=== PATIENT | male | born 1960 | race Caucasian/White ===

== ENCOUNTER 2021-10-23 10:57 | Inpatient (IN) | payer MEDICAID, SELFPAY ==
[2021-10-23] VITALS (24 sets, daily range): BP systolic 107–139; BP diastolic 60–101; PULSE 80–101; RESP 16–36; TEMP 36.6–37.1; O2SAT 87–95; BMI 34.9; BMI 36.2
--- NOTE | 2021-10-23 11:03 | XRR_ITS ---
PROCEDURE INFORMATION: Exam: XR Chest Exam date and time: 10/23/2021 11:40 AM Age: 60 years old Clinical indication: Dyspnea TECHNIQUE: Imaging protocol: XR of the chest. Views: 1 view. COMPARISON: No relevant prior studies available. FINDINGS: Lungs: Unremarkable. No consolidation. Pleural spaces: Unremarkable. No pleural effusion. No pneumothorax. Heart/Mediastinum: Unremarkable. No cardiomegaly. Bones/joints: Unremarkable. XR/XR chest 1V portable [id number] IMPRESSION: No acute findings.
--- NOTE | 2021-10-23 11:22 | ECG_ITS ---
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 Measurements Intervals [place] Rate: 90 P: 50 AR: 157 QRS: 48 QRSD: 109 T: -10 QT: 370 QTc: 453 Interpretive Statements SINUS RHYTHM No previous ECG available for comparison Electronically Signed On 10-23-2021 17:11:26 CDT by Easton Cheng M.D. [email or web address] careTacatì[facility].[employer]/store/Ov/[id number]
[2021-10-23 11:45] LABS: Basophils % 0.2 %; Eosinophils # 0.3 10^3/uL (0.0-0.8); Eosinophils % 3.1 %; Hemoglobin 13.5 g/dL (11.7-16.6); Lymphocytes # 2.1 10^3/uL (0.8-4.8); Lymphocytes % 23.3 %; Mean Corpuscular Hemoglobin 27.9 pg (28.0-34.0); Mean Platelet Volume 10.3 fL (7.4-10.4); Monocytes # 1.1 10^3/uL (0.2-0.9); Monocytes % 12.1 %; Neutrophils # 5.29 10^3/uL (1.8-7.7); Neutrophils % 60.3 %; Nucleated Red Blood Cells % 0 %; Platelet Count 431 10^3/cmm (130-400); Red Blood Count 4.84 10^6/uL (4.1-5.3); Red Cell Distribution Width 14.9 % (12.1-15.1); White Blood Count 8.8 10^3/uL (4.0-10.0)
[2021-10-23 11:46] LABS: Anion Gap 12.4 (5-19); Blood Urea Nitrogen 8 mg/dL (8-23); Calcium 9.3 mg/dL (8.5-10.5); Carbon Dioxide 34 mmol/L (22-29); Chloride 98 mmol/L (98-107); Glomerular Filtration Rate 114.6 mL/min (90-130); Glucose 133 mg/dL (65-115); Osmolality Calculated 292 mOsm/kg (285-295); Potassium 3.4 mmol/L (3.5-5.1); Sodium 141 mmol/L (136-145)
--- NOTE | 2021-10-23 11:47 | W.ED.SOB ---
HPI - SOB/Dyspnea General: Chief Complaint: Shortness of Breath/Dyspnea Stated Complaint: LOW O2 SATS Time Seen by Provider: 10/23/21 11:21 Source: patient Mode of arrival: EMS History of Present Illness: HPI Narrative: 60 yo male presents emergency room complaining of shortness of breath cough. He recently was hospitalized at [facility] for pneumonia he was there for he said some between 7 and 9 days he ended up leaving early he had wanted to go they wanted him to stay for a time. Evidently they did discharge him he states he is not discharged on any oxygen. Patient was seen in follow-up yesterday at [facility] and they thought he was fluid overloaded he was coughing and short of breath he was advised to go to the hospital but did not. He presents to the emergency room today extremely dyspneic does have some swelling in his legs initially evaluated and given Lasix 60 mg or try to get old records but still have not been able to secure them. He tells me they screened him for blood clot in his lungs and he was told it was negative he was also receiving shots in his abdomen to prevent blood clots. MD elicited complaint: shortness of breath and cough Pertinent past history: COPD and congestive heart failure Onset (ago): week(s) Context: recent illness Timing: constant Severity: severe Exacerbating factors: exertion and coughing Relieving factors: oxygen and rest Known history of: COPD and congestive heart failure Associated symptoms: Reports chest congestion, cough and fever(s); Deny abdominal pain, chest pain, diaphoresis, dizziness, extremity pain, hemoptysis, lightheadedness, myalgias, nausea, orthopnea, palpitations, paresthesias, polydipsia, polyuria, rash, sense of impending doom, syncope or vomiting Treatment prior to arrival: none Review of Systems Const: Reports: fever(s), chills and body aches; Denies: diaphoresis ENMT: Denies: throat pain, ear or mastoid pain, nasal discharge or nasal congestion Card: Reports: edema and swelling of feet/ankles; Denies: chest pain, palpitations, lightheadedness, syncope or orthopnea Resp: Reports: dyspnea, productive cough, wheezing and chest congestion; Denies: non-productive cough or hemoptysis GI: Denies: abdominal pain, nausea or vomiting : Denies: flank pain, difficulty urinating, dysuria, urinary frequency or urinary urgency Musc: Denies: extremity pain Skin/Breast: Denies: rash or pruritus Neuro: Denies: dizziness Endo: Denies: polyuria or polydipsia PFSH ED PFSH: Medical History (Updated 10/23/21 @ 15:44 by Chad Kong DO) Congestive heart failure COPD (chronic obstructive pulmonary disease) Physical Exam Const: GENERAL APPEARANCE: cooperative ORIENTATION/CONSCIOUSNESS: Yes awake, Yes oriented to person, Yes oriented to place and Yes oriented to time HENMT: COMMON NORMALS: normocephalic, atraumatic and hearing grossly normal bilaterally HEAD & SCALP: normocephalic and atraumatic Resp: AUSCULTATION: rales, rhonchi and wheezes Cardio: COMMON NORMALS: regular rate, regular rhythm and No murmurs present (Cardio) RATE: regular rate RHYTHM: regular rhythm GI: COMMON NORMALS: Soft to palpation and No hepatosplenomegaly present AUSCULTATION: Yes normoactive bowel sounds PALPATION: Yes Soft to palpation, No Tenderness to palpation present (GI), No Guarding due to palpation present (GI) and Yes No hepatosplenomegaly present Extremity: COMMON NORMALS: normal to inspection, capillary refill normal, no clubbing, cyanosis or edema, no calf tenderness and no pedal edema Neuro: SENSORIUM/ORIENTATION: Yes oriented to person, Yes oriented to place and Yes oriented to time Skin: COMMON NORMALS: no rashes or lesions noted GENERAL SKIN EXAM: no rashes or lesions noted Course Vital Signs: Vital signs: Vital Signs Temperature 98.5 F 10/23/21 11:11 Pulse Rate 81 10/23/21 15:29 Respiratory Rate 32 H 10/23/21 15:29 Blood Pressure 139/77 10/23/21 15:29 Pulse Oximetry 90 10/23/21 15:29 MDM - SOB/Dyspnea Medical Decision Making Patient is starting productive cough suspect exacerbation of COPD and pneumonia as well as a mild fluid overload although the fluid overload seems to be minimal. We will restart him on Vanco Zosyn and Levaquin steroids and nebulizers oxygen support discussed with hospitalist orders written Medical Records I reviewed the patient's medical records. Lab Data I reviewed the patient's lab results. : 10/23/21 09:55 10/23/21 09:55 Labs/Radiology: Radiology Impressions Chest X-Ray 10/23/21 11:03 IMPRESSION: No acute findings. Laboratory Results WBC 8.8 10^3/uL (4.0-10.0) 10/23/21 09:55 RBC 4.84 10^6/uL (4.1-5.3) 10/23/21 09:55 Hgb 13.5 g/dL (11.7-16.6) 10/23/21 09:55 Hct 45.0 % (42.0-52.0) 10/23/21 09:55 MCV 93.0 fl (80-94) 10/23/21 09:55 MCH 27.9 pg (28.0-34.0) L 10/23/21 09:55 MCHC 30.0 g/dL (30.0-36.0) 10/23/21 09:55 RDW 14.9 % (12.1-15.1) 10/23/21 09:55 Plt Count 431 10^3/cmm (130-400) H 10/23/21 09:55 MPV 10.3 fL (7.4-10.4) 10/23/21 09:55 Neut % (Auto) 60.3 % 10/23/21 09:55 Lymph % (Auto) 23.3 % 10/23/21 09:55 Craven % (Auto) 12.1 % 10/23/21 09:55 Eos % (Auto) 3.1 % 10/23/21 09:55 Baso % (Auto) 0.2 % 10/23/21 09:55 Neut # (Auto) 5.29 10^3/uL (1.8-7.7) 10/23/21 09:55 Lymph # (Auto) 2.1 10^3/uL (0.8-4.8) 10/23/21 09:55 Craven # (Auto) 1.1 10^3/uL (0.2-0.9) H 10/23/21 09:55 Eos # (Auto) 0.3 10^3/uL (0.0-0.8) 10/23/21 09:55 Baso # (Auto) 0.0 10^3/uL (0.0-0.1) 10/23/21 09:55 Nucleated RBC % (auto) 0 % 05/17/22 09:55 Nucleated RBCs # 0.0 /100WBC 10/23/21 09:55 Specimen Type Arterial 10/23/21 11:37 Sample Site Radial, left 10/23/21 11:37 ABG pH 7.40 (7.35-7.45) 10/23/21 11:37 ABG pCO2 59.9 mmHg (35-45) H 10/23/21 11:37 ABG pO2 59.4 mmHg (80.0-100.0) L 10/23/21 11:37 ABG HCO3 36.9 mmol/L (22-26) H 10/23/21 11:37 ABG O2 Saturation 89.9 10/23/21 11:37 ABG Base Excess 9.8 mmol/L (-2.0-2.0) H 10/23/21 11:37 Ray Test Pos 10/23/21 11:37 A-a O2 Gradient 8.9 mmHg (5-10) 10/23/21 11:37 Hematocrit 40.9 % (42-52) L 10/23/21 11:37 Hgb O2 Saturation 87.3 % (95-100) L 10/23/21 11:37 Carboxyhemoglobin 2.1 %THgb (0.4-20.1) 10/23/21 11:37 Methemoglobin 0.8 % (0.4-1.5) 10/23/21 11:37 Total Hemoglobin 13.3 g/dL (14-18) L 10/23/21 11:37 Sodium 142.0 mmol/L (131-143) 10/23/21 11:37 Potassium 3.5 mmol/L (3.5-5.0) 10/23/21 11:37 Glucose 147.0 mg/dL (70-115) H 10/23/21 11:37 Ionized Calcium 1.2 mmol/L (1.1-1.4) 10/23/21 11:37 O2 Delivery Device Nc 10/23/21 11:37 O2 Liters/Min 2.0 % 10/23/21 11:37 FiO2 28.0 % 10/23/21 11:37 Chief Human Resources Officer ID Cak 10/23/21 11:37 Sodium 141 mmol/L (136-145) 10/23/21 09:55 Potassium 3.4 mmol/L (3.5-5.1) L 10/23/21 09:55 Chloride 98 mmol/L (98-107) 10/23/21 09:55 Carbon Dioxide 34 mmol/L (22-29) H 10/23/21 09:55 Anion Gap 12.4 (5-19) 10/23/21 09:55 BUN 8 mg/dL (8-23) 10/23/21 09:55 Creatinine 0.7 mg/dL (0.7-1.2) 10/23/21 09:55 GFR Calculation 114.6 mL/min (90-130) 10/23/21 09:55 Glucose 133 mg/dL (65-115) H 10/23/21 09:55 Calculated Osmolality 292 mOsm/kg (285-295) 10/23/21 09:55 Calcium 9.3 mg/dL (8.5-10.5) 10/23/21 09:55 Troponin T Baseline 12 ng/L (0-15) 10/23/21 11:45 Troponin T 120 Minute 11.29 ng/L (0-15) 10/23/21 14:00 Delta Troponin T -0.71 ABS# (0-10) L 10/23/21 14:00 NT-Pro-B Natriuret Pep 134 pg/mL (0-125) H 10/23/21 14:35 Discharge Plan Discharge Patient Disposition: Admitted As Inpatient Clinical Impression: Acute exacerbation of chronic obstructive pulmonary disease, Congestive heart failure, Pneumonia Condition: Stable Prescriptions: No Action losartan 50 mg tablet 50 mg PO DAILY 0RF furosemide 40 mg tablet 40 mg PO BID 0RF atorvastatin 40 mg tablet 40 mg PO BEDTIME 0RF silver sulfadiazine 1 % cream 1 applic TOPICAL BID PRN (Reason: unknown) 0RF Zyrtec 10 mg Tablet 10 mg PO DAILY 0RF azithromycin 250 mg tablet See Rx Instructions .ROUTE .COMPLEX 0RF Rx Instructions: as directed on package aspirin 325 mg Tablet 325 mg PO QAM 0RF ibuprofen 800 mg Tablet 800 mg PO Q8H PRN (Reason: Pain) 0RF famotidine 40 mg tablet 40 mg PO BID 0RF Tylenol Ex Str Rapid Release 500 mg Tablet 500 mg PO Q6H PRN (Reason: Pain) 0RF glimepiride 2 mg tablet 2 mg PO BID 0RF isosorbide mononitrate 60 mg tablet extended release 24 hr 60 mg PO BID 0RF citalopram 20 mg tablet 20 mg PO BEDTIME 0RF trazodone 100 mg tablet 100 mg PO BEDTIME 0RF metformin 1,000 mg tablet 1,000 mg PO BID 0RF metoprolol tartrate 50 mg tablet 50 mg PO Q12H 0RF Nitrostat 0.4 mg Tablet, Sublingual 0.4 mg SUBLINGUAL Q5M PRN (Reason: Chest Pain) 0RF Rx Instructions: do not exceed 3 doses per episode ProAir HFA 90 mcg/actuation HFA aerosol inhaler 2 puff INHALATION Q4H PRN (Reason: Shortness Of Breath) 0RF fluticasone propionate 50 mcg/actuation spray,suspension 2 spray INTRANASAL DAILY PRN (Reason: Allergy Symptoms) 0RF amoxicillin-pot clavulanate 875-125 mg tablet 1 tab PO Q12H 0RF Symbicort 160-4.5 mcg/actuation HFA aerosol inhaler 2 puff INHALATION BID 0RF Centrum Silver Men 300-600-300 mcg Tablet 1 tab PO DAILY 0RF Jardiance 10 mg tablet 10 mg PO QAM 0RF albuterol sulfate 2.5 mg /3 mL (0.083 %) Solution For Nebulization 2.5 mg INHALATION Q6H PRN (Reason: Shortness Of Breath) 0RF Chest Congestion Relief 400 mg Tablet 400 mg PO Q6H PRN (Reason: Congestion) 0RF Referrals: Farnaz Cano FNP [Primary Care Provider] - Patient Instructions: Opioid Safety Coding Level of Care Code ED Copper Flotation Operator for Carolina Grace
[2021-10-23 11:49] LABS: ABG PCO2 59.9 mmHg (35-45); Alveolar-Arterial Oxygen Gradi 8.9 mmHg (5-10); Arterial Blood Gas Hematocrit 40.9 % (42-52); Base Excess ABG 9.8 mmol/L (-2.0-2.0); Blood Gas Allen Test Pos; Blood Gas Operator Identificat CAK; Blood Gas Sample Site Radial, left; Blood Gas Sample Type Arterial; Carboxyhemoglobin 2.1 %THgb (0.4-20.1); HCO3 ABG 36.9 mmol/L (22-26); HGB O2 Sat 87.3 % (95-100); Ionized Calcium Level - ABG 1.2 mmol/L (1.1-1.4); Methemoglobin 0.8 % (0.4-1.5); Oxygen Device NC; Oxygen Saturation ABG 89.9; PO2 ABG 59.4 mmHg (80.0-100.0); Potassium Level - ABG 3.5 mmol/L (3.5-5.0); Total Hemoglobin 13.3 g/dL (14-18)
[2021-10-23] MEDS: FUROsemide 10 mg/mL SDV 10mL 60 MG IVP (12:35)
--- NOTE | 2021-10-23 13:22 | ECG_ITS ---
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 Measurements Intervals [place] Rate: 89 P: 47 FL: 153 QRS: 42 QRSD: 110 T: -12 QT: 364 QTc: 443 Interpretive Statements SINUS RHYTHM POSSIBLE INFERIOR MYOCARDIAL INFARCTION , PROBABLY OLD [30 ms Q WAVE IN II/aVF] Compared to ECG 10/23/2021 11:17:00 Myocardial infarct finding now present Electronically Signed On 10-23-2021 17:15:24 CDT by Easton Cheng M.D. [email or web address].Mobixell Networksocean springs hospitalFinoverablanchard valley health system [facility].[employer] Quotient/store/OM/[id number]
--- NOTE | 2021-10-23 14:07 | PC.NURSE ---
lab coming to get blood sample.
[2021-10-23 14:34] LABS: Troponin(5th) Baseline 12 ng/L (0-15)
--- NOTE | 2021-10-23 14:48 | PC.NURSE ---
Patient's family Dorita Poli per patient is allowed to get updates, phone number that she can be reached at is [phone].
--- NOTE | 2021-10-23 14:52 | PC.NURSE ---
Called lab regarding two hour trop. they stated that is should be run soon.
[2021-10-23 15:10] LABS: Troponin 5 2HR 11.29 ng/L (0-15)
[2021-10-23 15:13] LABS: Troponin 5 2HR Delta -0.71 ABS# (0-10)
--- NOTE | 2021-10-23 15:13 | CTR_ITS ---
PROCEDURE INFORMATION: Exam: CTA Chest With Contrast Exam date and time: 10/23/2021 3:56 PM Age: 60 years old Clinical indication: Shortness of breath; Additional info: Hypoxia TECHNIQUE: Imaging protocol: Computed tomographic angiography of the chest with contrast. 3D rendering (Not supervised by radiologist): MIP and/or 3D reconstructed images were created by the technologist. Radiation optimization: All CT scans at this facility use at least one of these dose optimization techniques: automated exposure control; mA and/or kV adjustment per patient size (includes targeted exams where dose is matched to clinical indication); or iterative reconstruction. Contrast material: OMNI 300; Contrast volume: 79 ml; Contrast route: INTRAVENOUS (IV); COMPARISON: CR XR chest 1V portable [id number] 10/23/2021 11:40 AM RADIATION DOSE METRICS: Total DLP (mGy-cm): 628 FINDINGS: Pulmonary arteries: Minimal dilatation of main pulmonary artery at 3.2 cm. There is no pulmonary embolism in the central-proximal segmental branches. Assessment of the peripheral subsegmental small branches is limited. Aorta: Minimal ascending aortic prominence at 4 cm. Descending aorta measures 2.5 cm. No dissection. Lungs: Small ill-defined nodular densities which demonstrate peribronchial distribution in the right perihilar region of right upper lobe and right lower lobe with the largest density measuring 14 mm. A platelike patchy opacity is also noted in the periphery of posterior right upper lobe along the fissure measuring 2 cm which may represent atelectasis versus developing pneumonia. There is minimal central peribronchial thickening. No obvious bronchiectasis. No large round ground-glass opacity on either side. Scattered areas of linear scarring-atelectasis in both lung bases. Pleural spaces: Unremarkable. No pneumothorax. No pleural effusion. Heart: Normal heart size with coronary calcification. Lymph nodes: Nonenlarged mediastinal hilar calcified lymph nodes are noted compatible with chronic granulomatous disease. Bones/joints: No acute fracture. Soft tissues: Unremarkable. CT/CT angio chest PE protcl [id number] IMPRESSION: 1. No acute PE. 2. Small ill-defined nodular densities in the right perihilar region as described. Findings are nonspecific but most likely represent infectious inflammatory pneumonitis/bronchiolitis. Neoplastic process is less likely but not totally excluded. A patchy small consolidation/atelectasis is also noted. No large round ground-glass opacity. Interval CT follow-up may be considered in 4-6 weeks. Imaging features are atypical or uncommonly reported for COVID-19 pneumonia. Alternative diagnoses should be considered. (Reference: Bennie) 3. Minimal prominence of ascending aorta and main pulmonary artery. 4. Coronary calcification and other nonacute findings as above. REFERENCES: Bennie Cardenas et al., Radiological Society of [place] Expert Consensus Statement on Reporting Chest CT Findings Related to COVID-19. Endorsed by the Society of Thoracic Radiology, the [place] [employer], and RSNA. Published September 01, 2019.
[2021-10-23 15:19] LABS: NT Pro B Type Natriuretic Pept 134 pg/mL (0-125)
--- NOTE | 2021-10-23 15:30 | P.HP_ITS ---
Providers/Chief Complaint Primary Care Provider: GIOVANNY Olivia Chief Complaint: LOW O2 SATS History of Present Illness Gerard Bay is a 60 year old male with past medical history of COPD, smoker, diabetes mellitus, cad presented to the hospital today for shortness of breath requiring 3 L of oxygen saturating 90 to 92%. He also has a productive cough. He was recently at [facility] from where he possibly left AGAINST MEDICAL ADVICE. Unsure what he was admitted for. We are in the process of obtaining records from that hospital. He states that he was at the hospital and was being treated for pneumonia. Patient is a poor historian. He was not able to give me much more information. When asked him if he has obstructive sleep apnea he said he will probably do. He does not use any oxygen at home and here he is requiring 3 L nasal cannula. Patient seems to be a mouth breather is not doing well with nasal cannula. I will switch him to oxygen mask at this time. I have called respiratory. He does not have any conversational dyspnea at this time. He is just continuously hypoxic on room air. Denies any chest pain, nausea, vomiting, diarrhea, swelling in his legs. ER course: 117/60, respiratory rate 30, pulse 90, temperature 98.5, pulse ox 93% on 3 L. He was given steroids nebulizer Vanco and Levaquin. PCO2 60, PO2 50 on gas. EKG shows old inferior myocardial infarction and sinus rhythm now. Chest x-ray shows no acute findings. CTA has been ordered to rule out PE. WBC count normal, potassium 3.4, CO2 34 delta troponin negative. proBNP 134. Medications/Allergies Home Medications Medication Instructions Recorded Confirmed Last Taken Type acetaminophen 500 mg tablet 500 mg PO Q6H PRN 10/23/21 10/23/21 Unknown History albuterol sulfate 2.5 mg INHALATION Q6H PRN 10/23/21 10/23/21 Unknown History albuterol sulfate 90 mcg/actuation 2 puff INHALATION Q4H PRN 10/23/21 10/23/21 Unknown History aerosol inhaler (ProAir HFA) amoxicillin 875 mg-potassium 1 tab PO Q12H 10/23/21 10/23/21 10/22/21 History clavulanate 125 mg tablet aspirin 325 mg tablet 325 mg PO QAM 10/23/21 10/23/21 10/22/21 History atorvastatin 40 mg tablet 40 mg PO BEDTIME 10/23/21 10/23/21 10/22/21 History azithromycin 250 mg tablet See Rx Instructions .ROUTE .COMPLEX 10/23/21 10/23/21 10/22/21 History 2 tabs budesonide-formoterol HFA 160 2 puff INHALATION BID 10/23/21 10/23/21 Unknown History mcg-4.5 mcg/actuation aerosol inhaler (Symbicort) cetirizine 10 mg tablet (Zyrtec) 10 mg PO DAILY 10/23/21 10/23/21 Unknown History citalopram 20 mg tablet 20 mg PO BEDTIME 10/23/21 10/23/21 10/22/21 History empagliflozin 10 mg tablet 10 mg PO QAM 10/23/21 10/23/21 10/22/21 History (Jardiance) famotidine 40 mg tablet 40 mg PO BID 10/23/21 10/23/21 10/22/21 History fluticasone propionate 50 2 spray INTRANASAL DAILY PRN 10/23/21 10/23/21 10/22/21 History mcg/actuation nasal spray,suspension furosemide 40 mg tablet 40 mg PO BID 10/23/21 10/23/21 10/22/21 History glimepiride 2 mg tablet 2 mg PO BID 10/23/21 10/23/21 10/22/21 History guaifenesin 400 mg tablet (Chest 400 mg PO Q6H PRN 10/23/21 10/23/21 10/22/21 History Congestion Relief) ibuprofen 800 mg tablet 800 mg PO Q8H PRN 10/23/21 10/23/21 Unknown History isosorbide mononitrate 60 mg 60 mg PO BID 10/23/21 10/23/21 10/22/21 History tablet,extended release 24 hr losartan 50 mg tablet 50 mg PO DAILY 10/23/21 10/23/21 10/22/21 History metformin 1,000 mg tablet 1,000 mg PO BID 10/23/21 10/23/21 10/22/21 History metoprolol tartrate 50 mg tablet 50 mg PO Q12H 10/23/21 10/23/21 10/22/21 History kdnfunto-guh-yrjff acid 300 1 tab PO DAILY 10/23/21 10/23/21 Unknown History mcg-lycopene 600 mcg-lutein 300 mcg tablet (Centrum Silver Men) nitroglycerin 0.4 mg sublingual 0.4 mg SUBLINGUAL Q5M PRN 10/23/21 10/23/21 Unknown History tablet (Nitrostat) silver sulfadiazine 1 % topical 1 applic TOPICAL BID PRN 10/23/21 10/23/21 Unknown History cream trazodone 100 mg tablet 100 mg PO BEDTIME 10/23/21 10/23/21 10/22/21 History Allergies Allergy/AdvReac Type Severity Reaction Status Date / Time No Known Allergies Allergy Verified 10/23/21 11:11 PFSH Acute PFSH: Medical History (Updated 10/23/21 @ 22:07 by Shirley James MD) Congestive heart failure COPD (chronic obstructive pulmonary disease) Vitals/I&O/Wt Last Vital Signs Temp 98.5 F 10/23/21 11:11 Pulse 81 10/23/21 15:29 Resp 32 H 10/23/21 15:29 BP 139/77 10/23/21 15:29 Pulse Ox 90 10/23/21 15:29 Weight last 48 hrs Weight 107.501 kg Physical Exam Narrative: General: Alert oriented x3, patient seen laying in bed appearing comfortable. No acute distress. Saturating 90 to 92% on nasal cannula. At times he desats but I am noticing that he is breathing from his mouth is when he is desaturating. HEENT: Normocephalic, atraumatic, EOMI, normal respiratory effort, no respiratory muscle use. Oral mucosa moist Cardio: Regular rate rhythm, normal S1-S2, no murmurs, patient did not want to get up unable to assess JVD. Respiratory: Clear to auscultation bilaterally, no wheezes but mild rhonchi present throughout lung aleman, diminished bilateral air entry. No crackles at this time. GI: Abdomen soft, nontender, nondistended, bowel sounds + Extremities: Trace bilaterally lower extremity edema, no cyanosis, chronic v enous stasis changes present. Data : 10/23/21 09:55 10/23/21 09:55 A&P Assessment and plan (1) Acute exacerbation of chronic obstructive pulmonary disease: Status: Acute (2) Congestive heart failure: Status: Acute (3) Pneumonia: Status: Acute (4) COPD (chronic obstructive pulmonary disease): Status: Acute (5) Diabetes mellitus: Status: Acute (6) CAD (coronary artery disease): Status: Acute (7) Nicotine dependence: Status: Acute (8) Hypertension: Status: Acute (9) Hyperlipidemia: Status: Acute Plan #COPD exacerbation #Possible pneumonia #Acute hypoxia requiring continue to nasal cannula oxygen #Coronary disease status post PCI, unable to provide more history #Hyperlipidemia #Hypertension #Diabetes mellitus type 2 #Questionable history of heart failure, patient states he is on a water pill but unable to give me more information. #CHF exacerbation -Sliding-scale insulin ? CTA ruled out PE. It seems patient has a COPD exacerbation at this time. He was recently treated for pneumonia as per what he tells us. I have requested to obtain records from [facility]. Unsure what his acute hypoxia etiology is at this time. ? We will treat him with steroids, DuoNeb, broad-spectrum antibiotics and IV Lasix at this time. ? Solu-Medrol 40 every 12, DuoNeb every 4 hours ? Check sputum gram stain ? Blood cultures obtained in the ER ? Lasix 40 BID IV daily. I am suspecting diastolic heart failure. I will diuresis patient. BNP is 134 the patient is also obese. ? Continue his home medications ? Check procalcitonin, de-escalate antibiotics accordingly. ? We will order oxygen mask for him instead of nasal cannula at this time. ? Check echo ? Troponins negative x3 ? Patient is 1/2 pack/day smoker, it may just be that his COPD has progressed. ? I will check COVID, influenza Full code Attestations Medical Necessity Statement*: Patient will cross 2 midnights for treatment and workup of acute hypoxia. Coding Level of Care Code Acute Director Smb Sales for [facility] Fwd Diagnoses Acute exacerbation of chronic obstructive pulmonary disease J44.1 Congestive heart failure I50.9 Pneumonia J18.9 COPD (chronic obstructive pulmonary disease) J44.9 Diabetes mellitus E11.9 CAD (coronary artery disease) I25.10 Nicotine dependence F17.200 Hypertension I10 Hyperlipidemia E78.5
[2021-10-23] MEDS: iohexol 300 mg/mL 100 mL Btl IV (15:57)
[2021-10-23] MEDS: piperacillin-tazobactam 3.375 GM in sodium chloride 0.9% (plus) 50 ML IV (16:10)
[2021-10-23] MEDS: ipratropium-albuterol 3 mL Neb INHALATION ×3 (16:14→23:16)
--- NOTE | 2021-10-23 16:34 | PC.NURSE ---
Patient oxygen at 88% on 4 liters, hospitalist at bedside and is aware of oxygen level .
[2021-10-23 16:50] LABS: Add Urine Microscopic? NO; Charge for UA Resulting for Rev
[2021-10-23 17:11] LABS: Bilirubin Urine Neg (Negative); Blood Urine Neg (Negative); Glucose Urine UA 2+ (Normal); Ketones Urine Negative (Negative); Leukocyte Esterase Urine Negative (Negative); Nitrate Urine Negative (Negative); Protein Urine Neg (Negative); Specific Gravity, Urine 1.005 (1.005-1.030); Urine Appearance Clear (CLEAR); Urine Color Yellow (Yellow); Urobilinogen Urine Norm (Negative); pH Urine 7 (5-7)
[2021-10-23 17:17] LABS: Phosphorus 3.6 mg/dL (2.5-4.5); Procalcitonin 0.05 ng/mL (0-0.5); Thyroid Stimulating Hormone 1.28 uIU/mL (0.27-4.20)
--- NOTE | 2021-10-23 17:22 | ECG_ITS ---
[facility] Test Date: 2021-10-23 Pat Name: Gerard Bay Department: Room: 279 Gender: Male Dental Technician: : 1960 Requested By: Chad Chester Order Number: [id number] Omer MD: Easton Cheng M.D. Measurements Intervals [place] Rate: 75 P: 45 [place]: 146 QRS: 51 QRSD: 110 T: -7 QT: 381 QTc: 428 Interpretive Statements SINUS RHYTHM WITH OCCASIONAL VENTRICULAR PREMATURE COMPLEXES MODERATE ST DEPRESSION [0.05+ mV ST DEPRESSION] Compared to ECG 10/23/2021 13:59:29 Ventricular premature complex(es) now present ST (T wave) deviation now present Myocardial infarct finding no longer present Electronically Signed On 10-23-2021 22:02:58 CDT by Easton Cheng M.D. [email or web address].[employer]/store/[id number]
[2021-10-23 17:48] LABS: Glucose Point of Care 132 mg/dL (70-110)
[2021-10-23] MEDS: heparin 5,000 unit/mL INJ 1 mL 5000 UNIT SUBCUT (18:51)
[2021-10-23] MEDS: FUROsemide 10 mg/mL SDV 4mL 40 MG IVP (18:51)
[2021-10-23] MEDS: isosorbide mononitrate ER 60 mg Tablet PO (18:52)
[2021-10-23] MEDS: famotidine 20 mg Tablet 40 MG PO (18:52)
[2021-10-23] MEDS: metoprolol tartrate 50 mg Tablet PO (18:52)
[2021-10-23 19:03] LABS: Troponin 5 6HR 10.66 ng/L (0-15)
[2021-10-23 19:04] LABS: Troponin 5 6HR Delta -1.34 ng/L (0-12)
[2021-10-23 20:25] LABS: Estmated Average Glucose 169; Hemoglobin A1C 7.5 % (4.0-6.0)
[2021-10-23 20:36] LABS: Glucose Point of Care 248 mg/dL (70-110)
[2021-10-23] MEDS: budesonide 0.5 mg/2 mL Neb INHALATION (20:44)
[2021-10-23] MEDS: atorvastatin 40 mg Tablet PO (21:11)
[2021-10-23] MEDS: levofloxacin-dextrose 5 % 750 MG/150 ML PREMIX 100 MG IV (21:12)
[2021-10-23] MEDS: trazodone 100 mg Tablet PO (21:12)
[2021-10-23] MEDS: citalopram 20 mg Tablet PO (21:12)
[2021-10-23] MEDS: insulin lispro 100 unit/1 mL SUBCUT (21:45)
[2021-10-24] VITALS (14 sets, daily range): BP systolic 102–119; BP diastolic 63–71; PULSE 71–91; RESP 13–20; TEMP 36.6–37.1; O2SAT 90–96
--- NOTE | 2021-10-24 02:30 | USCV_ITS ---
Phu Gerard Age: 60 Gender: M : 1960 Exam Date: 10/24/2021 02:34 Ordering Phys: Shirley James MD Technologist: SHANICE [place] [facility] [place]: CHF BP: / HR: 80 Rhythm: Sinus Technical Quality: Adequate MEASUREMENTS (Male / Female) Normal Values 2D ECHO LV Diastolic Diameter PLAX 4.1 cm 4.2 - 5.9 / 3.9 - 5.3 cm LV Systolic Diameter PLAX 3.0 cm IVS Diastolic Thickness 1.3 cm 0.6 - 1.0 / 0.6 - 0.9 cm IVS Systolic Thickness 1.4 cm LVPW Diastolic Thickness 1.4 cm 0.6 - 1.0 / 0.6 - 0.9 cm LVPW Systolic Thickness 1.8 cm LVOT Diameter 2.0 cm LV Ejection Fraction 2D Teich 44.5 % LV Ejection Fraction MOD 2C 55.0 % LV Ejection Fraction 2C AL 55.9 % LA Diameter 3.7 cm LA Width 3.8 cm LA Height 4.4 cm RA Width 4.8 cm RA Height 5.3 cm Aorta at Sinotubular Diameter 2.5 cm IVC Diameter 2.0 cm M-MODE Aortic Annulus Diameter 2.9 cm LA Ao Ratio MM 1.6 MV E Point Septal Separation 0.3 cm DOPPLER AV Peak Velocity 124.8 cm/s MV Peak Velocity 83.0 cm/s MV Area PHT 4.3 cm squared Mitral E to A Ratio 1.0 MV E' Velocity 44.5 cm/s Mitral E to MV E' Ratio 8.3 Mitral E to LV E' Lateral Ratio 7.6 Mitral E to LV E' Septal Ratio 9.3 TR Peak Velocity 134.5 cm/s TR Peak Gradient 7.2 mmHg TR Mean Velocity 65.5 cm/s TR Mean Gradient 2.3 mmHg TR Velocity Time Integral 20.5 cm Right Atrial Pressure 10.0 mmHg Pulmonary Artery Systolic Pressu 17.2 mmHg PV Peak Velocity 101.0 cm/s RV Acceleration Time 0.2 s RV Ejection Time 0.4 s RV AcT/ET 0.4 FINDINGS Left Ventricle Normal left ventricular cavity size. Normal left ventricular systolic function. Left ventricular ejection fraction is estimated at 65 %. Normal diastolic function. Abnormal septal motion. Right Ventricle Normal right ventricular size and systolic function. Right Atrium Normal right atrial size. Left Atrium Normal left atrial size. Mitral Valve Structurally normal mitral valve. No mitral valve stenosis. No mitral valve regurgitation. Aortic Valve Aortic valve not well visualized. No aortic valve stenosis. No aortic valve regurgitation. Tricuspid Valve Structurally normal tricuspid valve. Pulmonic Valve Structurally normal pulmonic valve. No pulmonary valve stenosis. Trace pulmonary valve regurgitation. Pericardium No pericardial effusion. Aorta Normal size aortic root and proximal ascending aorta. IVC Normal IVC dimension with >50% respiratory change of the inferior vena cava. CONCLUSIONS 1. This is a technically difficult study. Ultrasound enhancing agent Optison was used per protocol. 2. Normal left ventricular cavity size. Normal left ventricular systolic function. Left ventricular ejection fraction is estimated at 65 %. Normal diastolic function. 3. Normal right ventricular size and systolic function. 4. No prior similar studies to compare. Aspen Watkins MD (Electronically Signed) Final Date: 24 Oct 2021 16:35 S
[2021-10-24] MEDS: heparin 5,000 unit/mL INJ 1 mL 5000 UNIT SUBCUT ×3 (05:17→18:30)
[2021-10-24] MEDS: FUROsemide 10 mg/mL SDV 4mL 40 MG IVP ×2 (05:17→17:23)
[2021-10-24] MEDS: aspirin 325 mg Tablet PO (05:17)
[2021-10-24] MEDS: metoprolol tartrate 50 mg Tablet PO ×2 (05:17→17:24)
[2021-10-24 05:49] LABS: Basophils % 0.2 %; Eosinophils % 0.1 %; Hematocrit 45.9 % (42.0-52.0); Hemoglobin 13.7 g/dL (11.7-16.6); Lymphocytes % 7.7 %; Mean Corpuscular HGB Conc 29.8 g/dL (30.0-36.0); Mean Corpuscular Volume 93.7 fl (80-94); Mean Platelet Volume 9.5 fL (7.4-10.4); Monocytes # 0.6 10^3/uL (0.2-0.9); Monocytes % 5.1 %; Neutrophils # 10.92 10^3/uL (1.8-7.7); Neutrophils % 86.1 %; Nucleated Red Blood Cells % 0 %; Platelet Count 416 10^3/cmm (130-400); Red Cell Distribution Width 14.6 % (12.1-15.1); White Blood Count 12.7 10^3/uL (4.0-10.0)
[2021-10-24 06:20] LABS: Glucose Point of Care 236 mg/dL (70-110)
[2021-10-24 06:21] LABS: Alanine Aminotransferase 59 U/L (0-41); Albumin Level 3.7 g/dL (3.5-5.2); Alkaline Phosphatase 79 IU/L (40-130); Anion Gap 10.2 (5-19); Aspartate Amino Transferase 21 U/L (0-40); Blood Urea Nitrogen 15 mg/dL (8-23); Calcium 8.4 mg/dL (8.5-10.5); Carbon Dioxide 37 mmol/L (22-29); Chloride 97 mmol/L (98-107); Globulin 2.7 g/dL (1.3-4.6); Glomerular Filtration Rate 114.6 mL/min (90-130); Glucose 208 mg/dL (65-115); Osmolality Calculated 297 mOsm/kg (285-295); Potassium 4.2 mmol/L (3.5-5.1); Sodium 140 mmol/L (136-145); Total Bilirubin 0.4 mg/dL (0.15-1.2); Total Protein 6.4 g/dL (6.6-8.7)
[2021-10-24] MEDS: ipratropium-albuterol 3 mL Neb INHALATION ×4 (08:02→20:58)
[2021-10-24] MEDS: budesonide 0.5 mg/2 mL Neb INHALATION ×2 (08:02→20:58)
[2021-10-24] MEDS: insulin lispro 100 unit/1 mL SUBCUT ×4 (09:42→20:52)
[2021-10-24] MEDS: cetirizine 10 mg Tablet PO (09:46)
[2021-10-24] MEDS: isosorbide mononitrate ER 60 mg Tablet PO (09:46)
[2021-10-24] MEDS: famotidine 20 mg Tablet 40 MG PO ×2 (09:46→17:24)
--- NOTE | 2021-10-24 10:26 | PC.NURSE ---
Held am Losartan due to BP of 104/64. I informed Dr. Gunter via Volte.
--- NOTE | 2021-10-24 10:31 | XR_ITS ---
WS: [id number] Portable AP upright chest, 10/24/2021 Clinical Data: sob Comparison: Portable chest, 10/23/2021. Findings: No nodules, masses or effusions are seen. The heart is normal. The pulmonary vascularity is not increased. No pneumonia or pneumothorax is seen. There is patchy atelectasis throughout the mid portions and lower portions of both lungs XR/XR chest 1V portable [id number] Impression: Moderate patchy bilateral atelectasis.
--- NOTE | 2021-10-24 11:11 | PC.CHAP ---
Pastoral Care Encounter/Spiritual Assessment Type of Contact [] Declined consulting database administrator visit [] Patient/Family/Request visit [] Outpatient visit [] Follow-up visit [] Physician referral [] Code/Alert [x] Routine visit [] Staff referral [] Actively dying [] Patient sleeping [] Family support [] [] Out of room [] Palliative care [] [] Receiving care in room [] Pre-surgical visit [] Trauma [] Long length of stay [] ICU visit [] Other: Relational/Emotional Strength [x] Patient feels connected with others/family/visitors/staff [] Distress [] Loneliness/isolation [] Abandonment Spirituality of Patient [x] Person of Radha [] Attends Spiritism of their Radha [x] Believes in Prayer [] Reads Bible or Yazidism materials [] There are Spiritual issues to be addressed Organizational Effectiveness Director Interventions [x] Prayer x[] Active listening [x] Non-anxious presence [] Spiritual/emotional support [] Crisis/trauma care [] Spiritual counseling [] Bereavement support [] Provided bereavement packet [] Provided Bible/devotional materials [] Provided toy/stuffed animal, coloring book to patient or family member [] Provided Communion [] Anointing/Howell [] Salvation [x] Completed spiritual assessment [] Other: Impact on Illness or Injury [] Angry [] Fearful [] Anxious [] Often cries [] Exhaustion [] Unable to work [] Unable to attend anglican [] Unable to walk/stand [] Unable to read [] Unable to drive [] Unable to eat/drink [] Unable to sleep [] Unable to be with family [] Patient intubated [] Other: Summary Time spent with patient
[2021-10-24 11:40] LABS: Glucose Point of Care 175 mg/dL (70-110)
[2021-10-24 12:00] LABS: Procalcitonin 0.06 ng/mL (0-0.5)
[2021-10-24 12:13] LABS: Iron 59 ug/dL (59-158); Percent Saturation 19.3 % (20-50); Total Iron Binding Capacity 305 mcg/dl; Unsaturated Iron Binding 246 ug/dL (112-347)
[2021-10-24] MEDS: piperacillin-tazobactam 3.375 GM in sodium chloride 0.9% (plus) 50 ML IV ×2 (13:00→19:29)
--- NOTE | 2021-10-24 16:16 | P.PN_ITS ---
Subjective Subjective: Hospital course, labs appreciated. Currently on 5 L oxygen supplementation. Sitting up in chair. Denies any nausea, pain, headache. States feeling better. does not require oxygen at baseline. was recently in [facility] within last 1 week when he was treated for pneumonia with IV antibiotics and oxygen supplementation for 9 days. Discharged 3 days ago. Lives with [id number] and grandkids. Grandkids having sniffles but does not think he got infection from them. Vitals/I&O/Wt Last Vital Signs Temp 98.7 F 10/24/21 08:00 Pulse 85 10/24/21 16:00 Resp 14 10/24/21 16:00 BP 119/71 10/24/21 16:00 Pulse Ox 93 10/24/21 16:00 10/24/21 10/24/21 10/24/21 06:59 14:59 22:59 Intake Total 240 / 1821 425 / 425 237 / 662 Output Total 1480 / 2680 1050 / 1050 Balance -1240 / -859 -625 / -625 237 / -388 Weight last 48 hrs Weight 111.3 kg Weight 107.501 kg Physical Exam Narrative: General: Alert oriented x3, patient seen laying in bed appearing comfortable. No acute distress. HEENT: Normocephalic, atraumatic, EOMI, normal respiratory effort, no respirator y muscle use. Oral mucosa moist Cardio: Regular rate rhythm, normal S1-S2, no murmurs, patient did not want to get up unable to assess JVD. Respiratory: Normal vesicular breath sounds bilaterally, occasional rhonchi over the lung aleman, coarse crackles present in left and right lower zone GI: Abdomen soft, nontender, nondistended, bowel sounds + Extremities: Trace bilaterally lower extremity edema, no cyanosis, chronic venous stasis changes present. Data : 10/24/21 05:36 10/24/21 05:36 Micro: Microbiology 10/24/21 11:11 Blood Culture - Preliminary Blood SPECIMEN COLLECTED 10/24/21 11:05 Blood Culture - Preliminary Blood SPECIMEN COLLECTED A&P Assessment and plan (1) Respiratory failure with hypoxia: Status: Acute (2) Acute exacerbation of chronic obstructive pulmonary disease: Status: Acute (3) Congestive heart failure: Status: Acute (4) Pneumonia: Status: Acute (5) Diabetes mellitus: Status: Acute (6) CAD (coronary artery disease): Status: Acute (7) Nicotine dependence: Status: Acute (8) Hypertension: Status: Acute (9) Hyperlipidemia: Status: Acute Plan Respiratory failure with hypoxia: Currently requires 5 L of oxygen supplementation. Recent hospitalization with pneumonia at an outside hospital. Current symptoms most likely secondary to COPD exacerbation and mild congestive heart failure. Cannot rule out active pneumonia. For now continue with vancomycin and Levaquin. Add Zosyn to treat for comm unity-acquired pneumonia. Follow-up sputum culture, blood culture. Check COVID-19, flu swab, MRSA swab. Check urine Legionella, bacterial antigen. Fluid restriction. Continue with IV Lasix 40 mg twice daily. Check echocardiogram. Strict input output charting. DuoNebs every 6 hour, budesonide twice daily. Continue with Solu-Medrol 40 mg IV twice daily. We will do a quick taper Hypertension: Goal blood pressure less than 140/90 mmHg. Blood pressure slightly soft today. Continue home dose of metoprolol. Hold off on losartan for now. Decrease dose of Imdur to 30 mg twice daily. Full code. Famotidine for PUD prophylaxis. Heparin for DVT prophylaxis. Attestations Medical Necessity Statement*: Laceration for management of respiratory failure with hypoxia most likely COPD exacerbation and congestive heart failure in setting of recent pneumonia Time Spent in Patient Care: Greater than 35 minutes Coding Level of Care Code Acute Radiographic Technologist for [facility] Fwd Diagnoses Acute exacerbation of chronic obstructive pulmonary disease J44.1 Congestive heart failure I50.9 Pneumonia J18.9 Diabetes mellitus E11.9 CAD (coronary artery disease) I25.10 Nicotine dependence F17.200 Hypertension I10 Hyperlipidemia E78.5 Respiratory failure with hypoxia J96.91
[2021-10-24 16:42] LABS: Influenza A by IFA Negative (Negative); Influenza B by IFA Negative (Negative)
[2021-10-24] MEDS: isosorbide mononitrate ER 60 mg Tablet 30 MG PO (17:52)
[2021-10-24 17:54] LABS: Adenovirus Not Detected (NOT DETECT); Chlamydia Pneumoniae Not Detected (NOT DETECT); Coronavirus 229E,HKU1,NL63,OC4 Not Detected (NOT DETECT); Human Metapneumovirus Not Detected (NOT DETECT); Human Rhinovirus/Enterovirus Not Detected (NOT DETECT); Influenza A Not Detected (NOT DETECT); Influenza A H1 Not Detected (NOT DETECT); Influenza A H1-2009 Not Detected (NOT DETECT); Influenza A H3 Not Detected (NOT DETECT); Influenza B Not Detected (NOT DETECT); Mycoplasma Pneumoniae Not Detected (NOT DETECT); Parainfluenza Virus Type 1 Not Detected (NOT DETECT); Parainfluenza Virus Type 2 Not Detected (NOT DETECT); Parainfluenza Virus Type 3 Not Detected (NOT DETECT); Parainfluenza Virus Type 4 Not Detected (NOT DETECT); Respiratory Syncytial Virus A Not Detected (NOT DETECT); Respiratory Syncytial Virus B Not Detected (NOT DETECT); SARS-COV-2 Not Detected (NOT DETECT)
[2021-10-24 18:18] LABS: Glucose Point of Care 314 mg/dL (70-110)
[2021-10-24 20:57] LABS: Glucose Point of Care 334 mg/dL (70-110)
[2021-10-24] MEDS: trazodone 100 mg Tablet PO (21:59)
[2021-10-24] MEDS: citalopram 20 mg Tablet PO (21:59)
[2021-10-24] MEDS: atorvastatin 40 mg Tablet PO (21:59)
--- NOTE | 2021-10-24 23:20 | PC.PHAR ---
Pharmacokinetic dosing service Date: 10/24/21 Time: 2329 Objective: Patient: [place] Floor: 279-2 Age: 60 yo Serum creatinine: 0.7 mg/dL Height: 69.0 Inches Weight (kg): 111.3 Diagnosis: Relevant medical/social history: Cultures and sensitivities: Other labs: Assessment: IBW (kg): 70.70 Dosing wt(kg): 111.3 Estimated Creatinine clearance (ml/min): 110.8 CRCL method: Cockcroft and Gault using ibw(default). Drug selected: Vancomycin Loading dose (mg): 0 Vd (liters): 100.2 (factor used: 0.9 L/kg) Russel (hr-1): 0.096 Half life (hrs): 7.22 Recommended dose: 1500 mg Interval: 8 hrs Infusion time (hrs): 1.5 Predicted peak (mcg/mL): 26.0 Predicted trough (mcg/mL): 13.93 Total body weight is being used for vancomycin dosing. Renal function is stable [ ] /unstable [ ] Recommendations: Give Vancomycin 1500 mg q 8 hrs with an expected Cpeak of 26.0 mcg/ml and an expected Ctrough of 13.93 mcg/ml Renal dosing of other antibiotics (review renal dosing of other medications and list guidelines here): Thank you for the consult, will continue to follow. Signature: Anna Giles [facility]
[2021-10-25] VITALS (21 sets, daily range): BP systolic 105–143; BP diastolic 61–79; PULSE 58–106; RESP 16–31; TEMP 36.4–36.6; O2SAT 87–98
[2021-10-25] MEDS: ipratropium-albuterol 3 mL Neb INHALATION ×6 (00:09→20:48)
[2021-10-25 05:22] LABS: Basophils % 0.2 %; Eosinophils % 0.1 %; Hematocrit 43.1 % (42.0-52.0); Hemoglobin 12.7 g/dL (11.7-16.6); Lymphocytes # 2.2 10^3/uL (0.8-4.8); Lymphocytes % 12.8 %; Mean Corpuscular HGB Conc 29.5 g/dL (30.0-36.0); Mean Corpuscular Hemoglobin 27.4 pg (28.0-34.0); Mean Corpuscular Volume 92.9 fl (80-94); Mean Platelet Volume 9.7 fL (7.4-10.4); Monocytes # 1.3 10^3/uL (0.2-0.9); Monocytes % 7.9 %; Neutrophils # 13.19 10^3/uL (1.8-7.7); Neutrophils % 78.3 %; Nucleated Red Blood Cells % 0 %; Platelet Count 440 10^3/cmm (130-400); Red Blood Count 4.64 10^6/uL (4.1-5.3); Red Cell Distribution Width 14.6 % (12.1-15.1); White Blood Count 16.8 10^3/uL (4.0-10.0)
[2021-10-25 05:50] LABS: Estmated Average Glucose 200; Hemoglobin A1C 8.6 % (4.0-6.0)
[2021-10-25 06:10] LABS: Alanine Aminotransferase 44 U/L (0-41); Albumin Level 3.5 g/dL (3.5-5.2); Alkaline Phosphatase 76 IU/L (40-130); Aspartate Amino Transferase 13 U/L (0-40); Blood Urea Nitrogen 19 mg/dL (8-23); Calcium 8.8 mg/dL (8.5-10.5); Carbon Dioxide 32 mmol/L (22-29); Chloride 97 mmol/L (98-107); Chol HDL Ratio 3.81 mg/dL (1.0-5.00); Cholesterol 118 mg/dL (0-200); Globulin 2.4 g/dL (1.3-4.6); Glomerular Filtration Rate 114.6 mL/min (90-130); Glucose 202 mg/dL (65-115); HDL Cholesterol 31 mg/dL (60-100); LDL Cholesterol Calculated 53 mg/dL (50-129); Osmolality Calculated 292 mOsm/kg (285-295); Sodium 137 mmol/L (136-145); Total Bilirubin 0.3 mg/dL (0.15-1.2); Total Protein 5.9 g/dL (6.6-8.7); Triglycerides 170 mg/dL (0-150); VLDL Cholestrol Calculation 34 mg/dL (0-30)
[2021-10-25] MEDS: piperacillin-tazobactam 3.375 GM in sodium chloride 0.9% (plus) 50 ML IV ×3 (06:35→22:08)
[2021-10-25] MEDS: aspirin 325 mg Tablet PO (06:36)
[2021-10-25] MEDS: metoprolol tartrate 50 mg Tablet PO ×2 (06:36→17:23)
[2021-10-25] MEDS: FUROsemide 10 mg/mL SDV 4mL 40 MG IVP (06:36)
[2021-10-25 06:46] LABS: Glucose Point of Care 181 mg/dL (70-110)
[2021-10-25] MEDS: budesonide 0.5 mg/2 mL Neb INHALATION ×2 (07:37→20:48)
[2021-10-25] MEDS: cetirizine 10 mg Tablet PO (07:59)
[2021-10-25] MEDS: isosorbide mononitrate ER 60 mg Tablet 30 MG PO ×2 (07:59→17:23)
[2021-10-25] MEDS: famotidine 20 mg Tablet 40 MG PO ×2 (07:59→17:23)
[2021-10-25] MEDS: insulin lispro 100 unit/1 mL SUBCUT ×4 (08:00→21:21)
--- NOTE | 2021-10-25 09:38 | PC.NURSE ---
600 ml/ 1500 remaining @0934 10/25
--- NOTE | 2021-10-25 09:40 | PC.NURSE ---
900 ml / 1500 ml remaining on fluid restriction @0934 10/25.
[2021-10-25] MEDS: heparin 5,000 unit/mL INJ 1 mL 5000 UNIT SUBCUT ×2 (10:52→17:23)
[2021-10-25 11:48] LABS: Glucose Point of Care 308 mg/dL (70-110)
--- NOTE | 2021-10-25 16:44 | PM.PN ---
Subjective Subjective: No acute vents overnight. Overnight patient denies any nausea, vomiting, headache. Examination today sitting at bedside. Down to 2 L oxygen supplementation today. States when he was discharged from [facility] he was not provided with any oxygen. Vitals/I&O/Wt Last Vital Signs Temp 97.6 F 10/25/21 11:25 Pulse 81 10/25/21 15:46 Resp 18 10/25/21 15:39 BP 106/63 10/25/21 11:25 Pulse Ox 95 10/25/21 15:39 10/25/21 10/25/21 10/25/21 06:59 14:59 22:59 Intake Total 300 / 1492 1140 / 1140 Output Total 1400 / 1400 Balance 300 / -598 -260 / -260 Weight last 48 hrs Weight 111.3 kg Physical Exam Narrative: General: Alert oriented x3, patient seen laying in bed appearing comfortable. No acute distress. HEENT: Normocephalic, atraumatic, EOMI, normal respiratory effort, no respiratory muscle use. Oral mucosa moist Cardio: Regular rate rhythm, normal S1-S2, no murmurs, patient did not want to get up unable to assess JVD. Respiratory: Normal vesicular breath sounds bilaterally, occasional rhonchi over the lung aleman, coarse crackles present in left and right lower zone GI: Abdomen soft, nontender, nondistended, bowel sounds + Extremities: Trace bilaterally lower extremity edema, no cyanosis, chronic venous stasis changes present. Data : 10/25/21 05:04 10/25/21 05:04 Micro: Microbiology 10/24/21 15:39 MRSA Culture - Final Nose 10/24/21 11:05 Blood Culture - Preliminary Blood NEGATIVE TO DATE 10/24/21 11:11 Blood Culture - Preliminary Blood NEGATIVE TO DATE A&P Assessment and plan (1) Respiratory failure with hypoxia: Status: Acute (2) Acute exacerbation of chronic obstructive pulmonary disease: Status: Acute (3) Congestive heart failure: Status: Acute (4) Pneumonia: Status: Acute (5) Diabetes mellitus: Status: Acute (6) CAD (coronary artery disease): Status: Acute (7) Nicotine dependence: Status: Acute (8) Hypertension: Status: Acute (9) Hyperlipidemia: Status: Acute Plan Respiratory failure with hypoxia: Resolving. Currently down to 2 L oxygen supplementation. Recent hospitalization with pneumonia at an outside hospital. Current symptoms most likely secondary to COPD exacerbation and mild congestive heart failure. Cannot rule out active pneumonia. Urine Legionella, bacterial antigen still awaited. Flu swab, COVID-19 PCR negative. MRSA negative. Continue with Zosyn and Levaquin. We will continue Levaquin for overall 3 days. Stop vancomycin as MRSA is negative. Follow-up sputum culture. Fluid restriction. Switch back to oral Lasix 40 mg twice daily at home dose. Most likely patient does not need Lasix going forward. We will discuss. Echocardiogram results shows an EF 65%, normal diastolic function, IVC dimension of more than 50% respiratory change. Strict input output charting. DuoNebs every 6 hour, budesonide twice daily. Switch to oral prednisone 40 mg daily. Hypertension: Goal blood pressure less than 140/90 mmHg. Blood pressure slightly soft today. Continue home dose of metoprolol, Imdur 30 mg twice daily. Hold off on losartan. Full code. Famotidine for PUD prophylaxis. Heparin for DVT prophylaxis. Attestations Medical Necessity Statement*: Requires further hospitalization for management of respiratory failure with hypoxia secondary COPD exacerbation in setting of recent pneumonia Time Spent in Patient Care: Greater than 35 minutes Coding Level of Care Code Acute Grading Clerk for [facility] Fwd Diagnoses Respiratory failure with hypoxia J96.91 Acute exacerbation of chronic obstructive pulmonary disease J44.1 Congestive heart failure I50.9 Pneumonia J18.9 Diabetes mellitus E11.9 CAD (coronary artery disease) I25.10 Nicotine dependence F17.200 Hypertension I10 Hyperlipidemia E78.5
[2021-10-25] MEDS: trazodone 100 mg Tablet PO (21:21)
[2021-10-25] MEDS: atorvastatin 40 mg Tablet PO (21:21)
[2021-10-25] MEDS: citalopram 20 mg Tablet PO (21:21)
[2021-10-25 21:31] LABS: Glucose Point of Care 311 mg/dL (70-110)
[2021-10-25 21:31] LABS: Glucose Point of Care 280 mg/dL (70-110)
[2021-10-26] VITALS (19 sets, daily range): BP systolic 107–145; BP diastolic 65–78; PULSE 53–79; RESP 15–20; TEMP 36.3–36.9; O2SAT 84–98
[2021-10-26] MEDS: ipratropium-albuterol 3 mL Neb INHALATION ×6 (01:19→20:51)
[2021-10-26] MEDS: heparin 5,000 unit/mL INJ 1 mL 5000 UNIT SUBCUT ×3 (02:23→17:53)
[2021-10-26 05:12] LABS: Basophils # 0.1 10^3/uL (0.0-0.1); Basophils % 0.3 %; Eosinophils # 0.1 10^3/uL (0.0-0.8); Eosinophils % 0.7 %; Hematocrit 43.9 % (42.0-52.0); Hemoglobin 12.7 g/dL (11.7-16.6); Lymphocytes # 3.4 10^3/uL (0.8-4.8); Lymphocytes % 22.9 %; Mean Corpuscular HGB Conc 28.9 g/dL (30.0-36.0); Mean Corpuscular Hemoglobin 27.3 pg (28.0-34.0); Mean Corpuscular Volume 94.2 fl (80-94); Mean Platelet Volume 9.6 fL (7.4-10.4); Monocytes # 1.3 10^3/uL (0.2-0.9); Monocytes % 8.5 %; Neutrophils # 9.95 10^3/uL (1.8-7.7); Neutrophils % 66.8 %; Nucleated Red Blood Cells % 0 %; Platelet Count 387 10^3/cmm (130-400); Red Blood Count 4.66 10^6/uL (4.1-5.3); Red Cell Distribution Width 14.9 % (12.1-15.1); White Blood Count 14.9 10^3/uL (4.0-10.0)
[2021-10-26] MEDS: piperacillin-tazobactam 3.375 GM in sodium chloride 0.9% (plus) 50 ML IV (05:33)
[2021-10-26] MEDS: aspirin 325 mg Tablet PO (05:34)
[2021-10-26] MEDS: metoprolol tartrate 50 mg Tablet PO ×2 (05:34→17:48)
[2021-10-26 05:38] LABS: Alanine Aminotransferase 52 U/L (0-41); Albumin Level 3.4 g/dL (3.5-5.2); Alkaline Phosphatase 75 IU/L (40-130); Anion Gap 12.8 (5-19); Aspartate Amino Transferase 28 U/L (0-40); Blood Urea Nitrogen 19 mg/dL (8-23); Calcium 9.3 mg/dL (8.5-10.5); Carbon Dioxide 30 mmol/L (22-29); Chloride 100 mmol/L (98-107); Globulin 2.7 g/dL (1.3-4.6); Glomerular Filtration Rate 98.3 mL/min (90-130); Glucose 216 mg/dL (65-115); Osmolality Calculated 297 mOsm/kg (285-295); Potassium 3.8 mmol/L (3.5-5.1); Sodium 139 mmol/L (136-145); Total Bilirubin 0.3 mg/dL (0.15-1.2); Total Protein 6.1 g/dL (6.6-8.7)
--- NOTE | 2021-10-26 07:53 | PC.NURSE ---
Alerted nurse to low O2
[2021-10-26] MEDS: budesonide 0.5 mg/2 mL Neb INHALATION ×2 (08:02→20:51)
[2021-10-26] MEDS: predniSONE 20 mg Tablet 40 MG PO (08:04)
[2021-10-26] MEDS: famotidine 20 mg Tablet 40 MG PO ×2 (08:04→17:47)
[2021-10-26] MEDS: insulin lispro 100 unit/1 mL SUBCUT ×4 (08:04→21:44)
[2021-10-26] MEDS: cetirizine 10 mg Tablet PO (08:04)
--- NOTE | 2021-10-26 08:05 | PC.RESP ---
Noc therapist turned patient to room air. Day therapist went to check on patient and patient was on 5LPM NC sat @ 94%. Nurse stated that oxygen was checked this morning and patient was sating low 80's. Oxygen was placed @ the 5LPM
[2021-10-26] MEDS: isosorbide mononitrate ER 60 mg Tablet 30 MG PO ×2 (08:08→17:47)
[2021-10-26] MEDS: FUROsemide 40 mg Tablet PO (08:17)
--- NOTE | 2021-10-26 12:53 | P.PN_ITS ---
Subjective Subjective: No acute events overnight. Patient had remained on 2 L oxygen supplementation. Today morning oxygen supplementation was turned down. Related patient was found to be hypoxic down to low 80s while being on room air. He was placed back on 5 L and significantly turned down gradually. He is back to 3 L saturating 93%. Patient denies of having any active complaints. Denies any nausea, vomiting, headache. Vitals/I&O/Wt Last Vital Signs Temp 97.8 F 10/26/21 11:51 Pulse 63 10/26/21 12:16 Resp 17 10/26/21 12:16 BP 129/78 10/26/21 11:51 Pulse Ox 93 10/26/21 12:16 10/25/21 10/26/21 10/26/21 22:59 06:59 14:59 Intake Total 830 / 1970 150 / 2120 600 / 600 Output Total 200 / 200 Balance 830 / 570 150 / 720 400 / 400 Physical Exam Narrative: General: Alert oriented x3, patient seen laying in bed appearing comfortable. No acute distress. HEENT: Normocephalic, atraumatic, EOMI, normal respiratory effort, no respiratory muscle use. Oral mucosa moist Cardio: Regular rate rhythm, normal S1-S2, no murmurs, patient did not want to get up unable to assess JVD. Respiratory: Normal vesicular breath sounds bilaterally, occasional rhonchi over the lung aleman, coarse crackles present in left and right lower zone GI: Abdomen soft, nontender, nondistended, bowel sounds + Extremities: Trace bilaterally lower extremity edema, no cyanosis, chronic venous stasis changes present. Data : 10/26/21 04:55 10/26/21 04:55 Micro: Microbiology 10/24/21 19:06 Gram Stain - Final Sputum - Expectorated Sputum Sputum Culture - Preliminary 10/24/21 15:39 MRSA Culture - Final Nose 10/24/21 11:05 Blood Culture - Preliminary Blood NEGATIVE TO DATE 10/24/21 11:11 Blood Culture - Preliminary Blood NEGATIVE TO DATE A&P Assessment and plan (1) Respiratory failure with hypoxia: Status: Acute (2) Acute exacerbation of chronic obstructive pulmonary disease: Status: Acute (3) Congestive heart failure: Status: Acute (4) Pneumonia: Status: Acute (5) Diabetes mellitus: Status: Acute (6) CAD (coronary artery disease): Status: Acute (7) Nicotine dependence: Status: Acute (8) Hypertension: Status: Acute (9) Hyperlipidemia: Status: Acute Plan Respiratory failure with hypoxia: Resolving. Currently down to 2 L oxygen supplementation. Recent hospitalization with pneumonia at an outside hospital. Current symptoms most likely secondary to COPD exacerbation and mild congestive heart failure. Cannot rule out active pneumonia. Urine Legionella, bacterial antigen still awaited. Flu swab, COVID-19 PCR negative. MRSA negative. Continue with Zosyn and Levaquin. We will continue Levaquin for overall 3 days. Stop vancomycin as MRSA is negative. Follow-up sputum culture. Fluid restriction. Lasix 40 mg oral daily. Echocardiogram results shows an EF 65%, normal diastolic function, IVC dimension of more than 50% respiratory change. Strict input output charting. DuoNebs every 6 hour, budesonide twice daily. Switch to oral prednisone 40 mg daily. Hypertension: Goal blood pressure less than 140/90 mmHg. Blood pressure slightly soft today. Continue home dose of metoprolol, Imdur 30 mg twice daily. Hold off on losartan. Full code. Famotidine for PUD prophylaxis. Heparin for DVT prophylaxis. Plan for day: Continue oxygen supplementation keeping saturation over 88%. Wean down accordingly. Continue prednisone 40 mg oral daily. Stop antibiotics. Continue DuoNebs every 6 hour budesonide twice daily. Lasix 40 mg oral daily. Discharge planning: Home O2 evaluation. Discharge home with oxygen. Discharge within next 24 hours with oxygen supplementation remained stable. Most likely patient will need a sleep apnea study to rule out baseline sleep apnea. Attestations Medical Necessity Statement*: Requires further hospitalization for management of respiratory failure with hypoxia secondary COPD exacerbation in setting of recent pneumonia Time Spent in Patient Care: Greater than 35 minutes Coding Level of Care Code Acute Mechanical Maintenance Foreman for [facility] Fwd Diagnoses Respiratory failure with hypoxia J96.91 Acute exacerbation of chronic obstructive pulmonary disease J44.1 Congestive heart failure I50.9 Pneumonia J18.9 Diabetes mellitus E11.9 CAD (coronary artery disease) I25.10 Nicotine dependence F17.200 Hypertension I10 Hyperlipidemia E78.5
[2021-10-26 17:10] LABS: Glucose Point of Care 188 mg/dL (70-110)
[2021-10-26 17:10] LABS: Glucose Point of Care 322 mg/dL (70-110)
[2021-10-26 17:10] LABS: Glucose Point of Care 216 mg/dL (70-110)
--- NOTE | 2021-10-26 20:00 | PC.NURSE ---
Pt sitting on the side of the bed watching tv. Pts resp even and non-labored no distress or sob noted. Pt on 2Lpm O2 via nc. Pt had no c/o pain or discomfort at the present time. No needs voiced. Call light in reach.
[2021-10-26 21:40] LABS: Glucose Point of Care 272 mg/dL (70-110)
[2021-10-26] MEDS: citalopram 20 mg Tablet PO (21:44)
[2021-10-26] MEDS: atorvastatin 40 mg Tablet PO (21:44)
[2021-10-26] MEDS: trazodone 100 mg Tablet PO (21:44)
[2021-10-27] VITALS (10 sets, daily range): BP systolic 94–138; BP diastolic 60–76; PULSE 60–95; RESP 15–18; TEMP 36.4–36.6; O2SAT 90–96
[2021-10-27] MEDS: heparin 5,000 unit/mL INJ 1 mL 5000 UNIT SUBCUT ×2 (02:52→10:11)
[2021-10-27] MEDS: metoprolol tartrate 50 mg Tablet PO (05:55)
[2021-10-27] MEDS: aspirin 325 mg Tablet PO (05:55)
[2021-10-27] MEDS: budesonide 0.5 mg/2 mL Neb INHALATION (07:50)
[2021-10-27] MEDS: ipratropium-albuterol 3 mL Neb INHALATION ×2 (07:50→11:48)
[2021-10-27] MEDS: famotidine 20 mg Tablet 40 MG PO (08:05)
[2021-10-27] MEDS: isosorbide mononitrate ER 60 mg Tablet 30 MG PO (08:05)
[2021-10-27] MEDS: FUROsemide 40 mg Tablet PO (08:06)
[2021-10-27] MEDS: cetirizine 10 mg Tablet PO (08:06)
[2021-10-27] MEDS: predniSONE 20 mg Tablet 40 MG PO (08:06)
[2021-10-27] MEDS: insulin lispro 100 unit/1 mL SUBCUT ×2 (08:26→11:10)
[2021-10-27 08:43] LABS: Glucose Point of Care 185 mg/dL (70-110)
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
[2021-10-27 12:34] LABS: Glucose Point of Care 310 mg/dL (70-110)
--- NOTE | 2021-10-27 13:12 | PC.ADMIT ---
405 [facility] Admission Note: The patient,Gerard Bay,60 y/o, was given written information regarding hospital policies, unit procedures and contact persons. Patient's smoking status: . Vital Signs - 8 hr 10/27/21 05:29 10/27/21 07:54 10/27/21 07:56 Temperature Pulse Rate 80 61 66 Respiratory Rate 16 Blood Pressure Pulse Oximetry 91 10/27/21 08:00 10/27/21 11:53 10/27/21 11:58 Temperature 97.7 F 97.8 F Pulse Rate 60 68 67 Respiratory Rate 15 16 16 Blood Pressure 96/60 94/61 Pulse Oximetry 95 90 96
== END 2021-10-27 14:50 | disposition home or self-care (01) | DRG 190 ==
LOC: ER 15:44 → MEDSURG 16:36
PROVIDERS: Emergency Medicine; Admitting Provider Internal Medicine; Emergency Provider Family Medicine; PCP Nurse Practitioner Family; Visit Provider Student in an Organized Health Care Education/Training Program
DX: J44.1 Chronic obstructive pulmonary disease with (acute) exacerbation (principal); J18.9 Pneumonia, unspecified organism; J96.91 Respiratory failure, unspecified with hypoxia; J44.0 Chronic obstructive pulmonary disease with (acute) lower respiratory infection; I11.0 Hypertensive heart disease with heart failure; F17.200 Nicotine dependence, unspecified, uncomplicated; E11.9 Type 2 diabetes mellitus without complications; I25.10 Atherosclerotic heart disease of native coronary artery without angina pectoris; I25.2 Old myocardial infarction; E78.5 Hyperlipidemia, unspecified; Z79.84 Long term (current) use of oral hypoglycemic drugs; Z79.51 Long term (current) use of inhaled steroids; I50.9 Heart failure, unspecified
CPT/HCPCS: 36415; 36416; 36600; 71045; 71275; 80048; 80051; 80053; 80061; 81003; 82330; 82805; 82962; 83036; 83540; 83550; 83735; 83880; 84100; 84145; 84443; 84484; 85025; 87040; 87070; 87205; 87635; 87641; 87804; 93005; 94640; 94664; 96365; 96366; 96367; 96372; 96375; 97110; 97161; 99285; C8929; J1644; J1815; J1940; J1956; J2543; J2920; J2930; J3370; J7050; J7512; J7626; Q9967

== ENCOUNTER 2022-03-22 12:28 | Outpatient (CLI) | payer MEDICAID, SELFPAY ==
--- NOTE | 2022-03-22 | CT_ITS ---
WS: [id number] CT scan of the chest without IV contrast, additional two-dimensional coronal and sagittal reconstruct ion was performed. 03/22/2022 Clinical Data: SOLITARY PULM NODULE Comparison: CTA chest, 10/23/2021 DLP: 780.[address] scans at [facility] use at least one of these dose optimization techniques: automated e xposure control; mA and/or kV adjustment per patient size (includes targeted exams where dose is matc hed to clinical indication); or iterative reconstruction. Findings: No nodules, masses or effusions are seen. The areas of atelectasis and questionable groundglass opaci fication have cleared totally. The heart size is normal with no pericardial effusion. There is shaw ry artery calcification and aortic valvular calcification. The pulmonary arterial system and thoracic aorta demonstrate no abnormalities or dilatations. The trachea bifurcates normally into the bronchi. There is no axillary or significant mediastinal adenopathy. There is minimal osteoarthritic change o f the thoracic vertebral bodies. The upper abdomen demonstrates no abnormalities. CT/CT chest wo con [id number]: 1[address] scan of chest with no evidence of any nodules or groundglass abn ormalities. 2. Coronary artery and aortic valvular calcification.
== END 2022-03-22 12:29 | disposition home or self-care (01) ==
LOC: RAD 12:28
PROVIDERS: PCP Nurse Practitioner Family; Visit Provider Nurse Practitioner Family
DX: R91.1 Solitary pulmonary nodule (principal); I25.10 Atherosclerotic heart disease of native coronary artery without angina pectoris; I70.0 Atherosclerosis of aorta
CPT/HCPCS: 71250

== ENCOUNTER → 2023-01-06 10:21 | Outpatient (BNVA) | payer MEDICAID, SELFPAY | PROVIDERS: PCP Nurse Practitioner Family; Visit Provider Internal Medicine Cardiovascular Disease | DX: Z01.810 Encounter for preprocedural cardiovascular examination (principal); H26.9 Unspecified cataract; I11.0 Hypertensive heart disease with heart failure; I50.9 Heart failure, unspecified; I25.118 Atherosclerotic heart disease of native coronary artery with other forms of angina pectoris; E78.5 Hyperlipidemia, unspecified; E11.9 Type 2 diabetes mellitus without complications; J44.9 Chronic obstructive pulmonary disease, unspecified; R07.9 Chest pain, unspecified; Z79.84 Long term (current) use of oral hypoglycemic drugs | CPT/HCPCS: 93005; 99204 ==

== ENCOUNTER → 2023-01-06 11:16 | Outpatient (BNVA) | payer MEDICAID, SELFPAY | PROVIDERS: PCP Nurse Practitioner Family; Visit Provider Internal Medicine Cardiovascular Disease | DX: R07.9 Chest pain, unspecified (principal) | CPT/HCPCS: 93005 ==

== ENCOUNTER 2023-07-25 09:44 | Outpatient (CLI) | payer MEDICAID, SELFPAY ==
[2023-07-25 09:48] VITALS: BMI 32.0
--- NOTE | 2023-07-25 09:52 | ECG_ITS ---
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 Interpretive Statements NAME OF STUDY: LEXISCAN SESTAMIBI STRESS TEST INDICATION: [pre op; hx of artery stent;cad] Procedure: At the baseline, the blood pressure was 126/79 mmHg with a heart rate of 73 bpm. The electrocardiogram showed normal sinus rhythm, normal axis with normal ST and T's. The Lexiscan was infused over a period of 20 seconds. A total of 0.4 mg of Lexiscan was infused. The stress phase was continued for a total of 5 minutes. Heart rate was at the end of stress phase was 78 bpm and a blood pressure of 109/69 mmHg. The EKG at the peak infusion revealed normal sinus rhythm with no significant ST-T wave changes. Sestamibi was injected 20 seconds after the Lexiscan infusion. Blood pressure at the end of recovery phase was 121/68 mmHg with a heart rate of 76 bpm. PVCs were seen during recovery. Conclusion: 1. Normal EKG response to Lexiscan infusion 2. No Lexiscan induced chest pain or cardiac arrhythmia. 3. Normal blood pressure and heart rate response. 4. Sestamibi/sestamibi perfusion scan pending; see separate report. Electronically Signed On 08-01-2023 12:13:18 PUBLIC HEALTH PHYSICIAN by Easton Cheng M.D. [id number]
--- NOTE | 2023-07-25 09:53 | NMCV_ITS ---
NM lonny perf SPECT r/s* [id number] Phu Gerard Age: 62 Gender: M : 1960 Exam Date: 07/25/2023 09:53 Ordering Phys: Priya Mustafa Technologist: CLARISSE Mcpherson Exam Location: [facility] Indications: HEART FAILURE STRESS TEST Please see separate stress test report [facility] for full findings IMAGE PROTOCOL Rest/Stress 1 Lexiscan Day Radiopharmaceutical Dose (mCi) Administration Site Administered by Rest: Tc-99m 10.8 IV CLARISSE Grier Sestamibi Stress:Tc-99m 32.7 IV CLARISSE Grier Sestamibi Rest: 25-Jul-2023 60 Discovery 630 Stress: 25-Jul-2023 30 Discovery 630 0.4mg Lexiscan. Images obtained in supine and prone position. SPECT RESULTS Technical Quality: Excellent Raw Data Analysis: Normal Image Corrections: No attenuation or motion correction applied Summed Stress Score: 4 Summed Rest Score: 2 Summed Difference Score: 3 PERFUSION FINDINGS There is a medium sized, partially reversible perfusion defect noted in the inferior wall. This is consistent with medium sized area of prior infarct with significant guerita-infarct ischemia in the RCA territory. FUNCTIONAL RESULTS (calculated via Gated SPECT) Stress Image LV EF (%): 64 Stress EDV (mL):105 TID: 0.97 Stress ESV (mL):38 FUNCTIONAL FINDINGS: There is normal left ventricular systolic function. IMPRESSIONS 1. Abnormal myocardial perfusion imaging with medium sized area of prior infarct with significant guerita-infarct ischemia in RCA territory. 2. LV systolic function is normal Easton Cheng MD (Electronically Signed) Final Date: 25 July 2023 14:17 S
[2023-07-25] MEDS: regadenoson 0.4 Mg/5 ml Syringe 0.400000000000000022 MG IVP (11:13)
[2023-07-25 11:50] VITALS: BP 121/68; PULSE 70
== END 2023-07-25 09:45 | disposition home or self-care (01) ==
PROVIDERS: PCP Nurse Practitioner Family; Visit Provider Nurse Practitioner Family
DX: Z01.810 Encounter for preprocedural cardiovascular examination (principal); Z95.5 Presence of coronary angioplasty implant and graft; I25.10 Atherosclerotic heart disease of native coronary artery without angina pectoris; I25.2 Old myocardial infarction; I50.9 Heart failure, unspecified
CPT/HCPCS: 36415; 78452; 93017; 96374; A9500; J2785

== ENCOUNTER 2023-08-15 10:25 | Outpatient (CLI) | payer MEDICAID, SELFPAY ==
--- NOTE | 2023-08-15 10:52 | XACV_ITS ---
Exam Room: 2 Ht: 175 cm Wt: 98 kg BSA: 2.22 m2 Gender: Male : 1960 Any Known Allergies: No known allergies Exam Priority: Routine Procedure(s): Procedure Description: Diagnostic procedure Procedure Description: Left Heart Catheterization Procedure Description: Left ventriculography Procedure Description: Coronary Angiography Leonardo SERVIN; Diagnostic Cath Status: Elective Diagnostic Findings * The left main is practically absent. Left and descending artery and the circumflex artery were found to have separate ostia. * The left anterior descending artery is a medium caliber vessel which appears to wrap around the LV apex. 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 Just before the takeoff of the first diagonal branch, there was a 40% stenosis in the artery. The mid and distal segment of the artery was found to have diffuse 20 to 30% irregular narrowing. No significant stenotic lesions were noted.. * The left circumflex artery is a medium caliber vessel with a diffuse irregular ectasia in the proximal and the mid segment. Proximally, before the takeoff of the recurrent atrial branch, there was a 50% tubular narrowing in the vessel. The artery appeared to be tortuous in this segment. The mid circumflex artery was found to have a stented segment which has some mild diffuse in-stent narrowing. The distal vessel was found to have mild diffuse intimal irregularities. * The right coronary artery is a medium caliber vessel which appeared to be totally occluded proximally. Some bridging collaterals were noted into the RV branch of the artery. Grade 2 [id number] collaterals were noted during the left coronary injection. The distal artery also appears to have severe diffuse disease. Conclusions 1. 62-year-old white male with a history of atherosclerotic heart diseas, previous PCI, high blood pressure, type 2 diabetes, dyslipidemia presented with complaints of chest pain. He had a Myocardial perfusion imaging which did reveal areas of fixed and reversible defects in the distribution of the right coronary artery. In view of his ongoing symptoms, in order to further evaluate his coronary status, a cardiac catheterization was recommended. Patient underwent left heart catheterization with left and right coronary angiogram and LV angiogram today. The findings are as follows. 2. Separate ostia for the left and descending artery and circumflex artery. Diffuse ectasia of the proximal segments of the left and resenting artery and circumflex artery. 40% gnosis of the proximal LAD, before the first diagonal branch. 50% lesion in the proximal circumflex artery before the recurrent atrial branch. Total occlusion of the right coronary artery near the ostium with some bridging collaterals to the right ventricular branch. Grade 2 [id number] collaterals revealing severe diffuse disease in the distal right coronary artery. Patent stented segment of the mid circumflex artery. Normal LV ejection fraction of 55%. Mild hypokinesia of the postero basal segment. LVEDP of 20 mmHg. LV EDP: 20 mmHg Ventriculography Ejection Fraction: 55.0 % Left Ventriculography Findings: * The LV gram was performed in the MELGAR projection . The LV cavity was of normal size. There was mild diffuse hypokinesia of the posterobasal region. There was no filling defect. No significant mitral valve prolapse or mitral regurgitation. Pressures Phase:Rest AO : / ( 0 ) @ 1:45:00 PM / ( 0 ) @ 1:52:00 PM 108 / 71 ( 86 ) @ 1:52:00 PM 120 / 72 ( 93 ) @ 2:15:00 PM 121 / 73 ( 94 ) @ 2:15:00 PM LV : 156 / -10 / 18 @ 2:14:00 PM 162 / -6 / 20 @ 2:15:00 PM 154 / -4 / 17 @ 2:15:00 PM Valves Phase:DefaultPhase AV : 36.0 @ 2:24:39 PM 36.0 @ 2:24:39 PM AV Mean Gradient: 19.0 @ 2:24:39 PM Clinical Evaluation EBL: 5mL-10mL Procedural Details Procedure Consent Obtained. Current Diagnosis : Chest Pain. Pre-Procedure Time Out. Identified patient by full name and date of as verbalized by the patient/guarantor. Does the consent match the physician's order: Yes. Accurate & Complete Informed Consent: Yes. Inpatient/Outpatient History & Physical on Chart: Yes. If H&P is completed, is and addenduem needed: No; If yes, is the addendum complete: N/A. Visualize and Verify Site with Patient/Guarantor: N/A. Relevant Radiology Images available: Yes. Pre-op teaching completed and patient verbalized understanding. The risks, benefits, and alternatives of sedation and/or procedure were discussed by physician. The patient agrees to continue. Procedure started. [facility] Clinical Fraility Score: 3: Managing Well. 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 Chest Pain Symptom Assessment: Typical Angina Symptoms. Correct patient, site and procedure confirmed by cath team. Current diagnosis: Chest Pain. PERRLA. 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 Lungs clear x 5 lobes. IV Site on Arrival: 20 gauge in the left anticubital. IV Fluids: 0.9% NaCl at KVO. 0 mL infused prior to research lab assistant. Pre Procedural Pulses: bilateral dorsalis pedis was 3+. Pre Procedural Pulses: right posterior tibial was 3+. Pre Procedural Pulses: left posterior tibial was 1+. Pre Procedural Pulses: bilateral radial was 3+. Oxygen started at 2liters/min via nasal canula. right groin was prepped with chloroprep then draped in the usual sterile fashion. right radial was prepped with chloroprep then draped in the usual sterile fashion. Physician notified. Baseline sample Acquired. HR: 149 BPM. Physician arrived. Physician scrubbed in. Immediate Pre-Procedure Time Out. Correct Patient: Yes; Correct Procedure: Yes; Correct Site: Yes; Correct Patient Position: Yes; Correct Supplies: Yes; Dried Flammable Prep: Yes; Blood Products Available: N/A;. Lidocaine 1% infiltrated to the right radial. 02 to 4lpm per nasal Cannula. Arterial access obtained. A 5 danish Damon catheter in over wire. Multiple views taken of left coronary artery. Catheter removed over the exchange wire. A 5 danish JR4 catheter in over wire. Multiple views taken of right coronary artery. Catheter removed over the exchange wire. A 5 danish Damon catheter in over wire. Catheter removed over the exchange wire. A 5 danish AL1 catheter in over wire. Multiple views taken of right coronary artery. Dr Salazar here to review films. Catheter removed over the wire. A 5 danish Angled Pig catheter in over wire. EDP Sample taken: LV 156/-11,18; HR: 61 BPM; SpO2: 91%. LV gram performed in MELGAR @ 10 mL/second for a total of 30 mL. Patient EF: Normal. EDP Sample taken: LV 162/-7,20; HR: 79 BPM; SpO2: 88%. Pullback taken: LV 154/-5,17; AO 120/72(93); Mean: 19mmHg, Peak to Peak: 36mmHg, SEP: 18sec/min; HR: 76 BPM; SpO2: 92%. Catheter removed over the wire. Physician scrubbed out. A TR Band was successful obtaining hemostatsis at the Right Radial artery insertion site. TR band placed. Hemostasis obtained. Post Procedure: Pulses reassessed and unchanged. PERRLA. 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 No VTE prophylaxis required. Total IV fluids: 325 mL. Fluoro: 11:07. Contrast type used: Omnipaque 300 mg/mL, 150 mL bottle. [id number]. Post-op diagnosis: Total RCA occlusion; Moderate CAD of other coronary vessels; Patent stents. Complications: None. Estimated blood loss: 5mL-10mL. Responsiveness - Normal response to verbal stimuli; alert and oriented, PERRLA. Airway - Unaffected, no intervention required; spontaneous ventilation. Circulation: W/N/L, pulses unchanged. Nausea/Vomiting: No. Procedure completed. Patient transferred by wheelchair to 1st floor. Vital chart was stopped. Medication waste: Nitro- 49.8 mg Heparin- 1000 units Versed- 1 mg Fentanyl- 75 mcg. Access Site Site: Right Radial artery Sheath Size: 6 Fr Hemostasis Method: TR Band Hemostasis Success: Successful Procedure Medications Start: 1:42 PM Stop: 1:42 PM Medication: Versed 1 mg and Fentanyl 25 mcg Amount: 1 Route: I.V. Start: 1:49 PM Stop: 1:49 PM Medication: Verapamil Amount: 5 mg Route: I.A. Start: 1:49 PM Stop: 1:49 PM Medication: Nitrogylcerin Amount: 200 mcg Route: I.A. Start: 1:50 PM Stop: 1:50 PM Medication: 0.9% Saline Amount: 250 ml Route: I.V. bolus Start: 1:51 PM Stop: 1:51 PM Medication: Heparin Amount: 5000 units Route: I.V. I, the attending physician, have reviewed and verified all procedure medications. Yes, all medications given per verbal order History/Risk Factors Hypertension: Yes Dyslipidemia: No Peripheral Arterial Disease (PAD): No Myocardial Infarction (IL): No Obesity: No Renal Disease: No Tobacco Use: Current/Recent(w/in 1 year) Prior Interventions PCI: No CABG: No Valve Surgery: No Report Signatures Finalized by Dr Yokasta Patterson MD [facility] on 08/15/2023 07:40 PM
[2023-08-15 11:03] LABS: Basophils % 0.5 %; Eosinophils # 0.1 10^3/uL (0.0-0.8); Eosinophils % 1.6 %; Hematocrit 52.1 % (37-53); Lymphocytes # 2.6 10^3/uL (0.8-4.8); Lymphocytes % 30.2 %; Mean Corpuscular HGB Conc 32.8 g/dL (30-55); Mean Corpuscular Hemoglobin 31.1 pg (27-33); Mean Corpuscular Volume 94.9 fl (82-101); Mean Platelet Volume 9.5 fL (7.4-10.4); Monocytes # 0.8 10^3/uL (0.2-0.9); Monocytes % 9.6 %; Neutrophils # 4.98 10^3/uL (1.8-7.7); Neutrophils % 57.8 %; Nucleated Red Blood Cells % 0 %; Platelet Count 219 10^3/cmm (157-399); Red Blood Count 5.49 10^6/uL (3.85-5.65); Red Cell Distribution Width 13.5 % (12.1-15.1); White Blood Count 8.63 10^3/uL (3.29-11.43)
[2023-08-15] MEDS: diphenhydrAMINE 50 mg Capsule PO (11:19)
[2023-08-15] MEDS: aspirin 325 mg Tablet PO (11:19)
[2023-08-15 11:20] VITALS: BP 128/77; PULSE 86; RESP 18; TEMP 36.7; O2SAT 93; BMI 32.0
[2023-08-15 11:20] LABS: Anion Gap 13.2 (5-19); Blood Urea Nitrogen 13 mg/dL (8-23); Calcium 9.6 mg/dL (8.5-10.5); Carbon Dioxide 29 mmol/L (22-29); Chloride 101 mmol/L (98-107); Glomerular Filtration Rate 97.6 mL/min (90-130); Glucose 136 mg/dL (65-115); Osmolality Calculated 290 mOsm/kg (285-295); Potassium 4.2 mmol/L (3.5-5.1); Sodium 139 mmol/L (136-145)
--- NOTE | 2023-08-15 12:01 | PM.HP ---
Providers/Chief Complaint Admitting Physician: SEAN Patterson MD Primary Care Provider: GIOVANNY Olivia Chief Complaint: I50.32, I25.118, R94.39 History of Present Illness Gerard Bay is a 62 year old male with a history of atherosclerotic heart disease, status post PCI, mainly presented for a preop cardiac evaluation. Patient is scheduled for bilateral cataract surgery. He has been having episodes of chest pain for the last several months. He had a Myocardial perfusion imaging done to further evaluate the symptoms. That test was found to be abnormal. Patient has a history of hypertension, type 2 diabetes, dyslipidemia, COPD and degenerative joint disease. Today he has no chest pain or shortness of breath. Review of Systems Narrative: CONSTITUTIONAL: No fever or chills. EYES: No blurring of vision or other visual disturbances lately. ENT: No hoarseness of voice, auditory disturbances or sore throat. CARDIOVASCULAR: As mentioned above. RESPIRATORY: No significant cough. GASTROINTESTINAL: No hematemesis or melena. GENITOURINARY: No dysuria or hematuria. INTEGUMENTARY: No skin rashes or history of skin cancer. Extensive tattoo watt NEURO: No transient ischemic attacks or amaurosis. PSYCHIATRIC: No history of psychosis or major depression. HEMATOLOGIC: No bleeding disorders or significant anemia. ENDOCRINE: No history of polyuria or polydipsia. MUSCULOSKELETAL: No recent joint pain or swelling. ALLERGY/IMMUNOLOGY: As mentioned above. Medications/Allergies Home Medications Medication Instructions Recorded Confirmed Last Taken Type acetaminophen 500 mg tablet 500 mg PO Q6H PRN Pain 10/23/21 08/12/23 Unknown History albuterol sulfate 2.5 mg/3 mL 2.5 mg inhalation Q6H PRN 10/23/21 08/12/23 Unknown History (0.083 %) solution for nebulization Shortness Of Breath albuterol sulfate 90 mcg/actuation 2 puff inhalation Q4H PRN 10/23/21 08/12/23 Unknown History aerosol inhaler (ProAir HFA) Shortness Of Breath aspirin 325 mg tablet 325 mg PO QAM 10/23/21 08/12/23 08/14/23 08:00 History atorvastatin 40 mg tablet 40 mg PO BEDTIME 10/23/21 08/15/23 08/13/23 History budesonide-formoterol HFA 160 2 puff inhalation BID 10/23/21 08/12/23 Unknown History mcg-4.5 mcg/actuation aerosol inhaler (Symbicort) citalopram 20 mg tablet 20 mg PO BEDTIME 10/23/21 08/12/23 08/14/23 08:00 History empagliflozin 10 mg tablet 10 mg PO QAM 10/23/21 08/12/23 08/14/23 08:00 History (Jardiance) famotidine 40 mg tablet 40 mg PO BID 10/23/21 08/12/23 08/14/23 08:00 History fluticasone propionate 50 2 spray intranasal DAILY PRN 10/23/21 08/12/23 10/22/21 History mcg/actuation nasal Allergy Symptoms spray,suspension furosemide 40 mg tablet 40 mg PO BID 10/23/21 08/12/23 08/14/23 08:00 History glimepiride 2 mg tablet 2 mg PO BID 10/23/21 08/12/23 08/14/23 08:00 History ibuprofen 800 mg tablet 800 mg PO Q8H PRN Pain 10/23/21 08/12/23 Unknown History losartan 50 mg tablet 50 mg PO DAILY 10/23/21 08/12/23 08/14/23 08:00 History metformin 1,000 mg tablet 1,000 mg PO BID 10/23/21 08/12/23 08/14/23 08:00 History metoprolol tartrate 50 mg tablet 50 mg PO Q12H 10/23/21 08/12/23 08/14/23 08:00 History usdlzohi-ab-lzbmm 300 mcg-K 60 1 tab PO DAILY 10/23/21 08/12/23 08/14/23 08:00 History mcg-lycop 600 mcg-lutein 300 mcg tablet (Centrum Silver Men) nitroglycerin 0.4 mg sublingual 0.4 mg sublingual Q5M PRN Chest 10/23/21 08/12/23 Unknown History tablet (Nitrostat) Pain silver sulfadiazine 1 % topical 1 applic topical BID PRN unknown 10/23/21 08/12/23 Unknown History cream budesonide 0.5 mg/2 mL suspension 0.25 mg inhalation BID #60 mL 10/27/21 08/12/23 Unknown Rx for nebulization (Pulmicort) ipratropium 0.5 mg-albuterol 3 mg 3 ml inhalation Q8H #90 mL 10/27/21 08/12/23 Unknown Rx (2.5 mg base)/3 mL nebulization soln isosorbide mononitrate 60 mg 30 mg (1/2 x 60 mg) PO BID #0 tabs 10/27/21 08/12/23 08/14/23 08:00 Rx tablet,extended release 24 hr Allergies Allergy/AdvReac Type Severity Reaction Status Date / Time No Known Allergies Allergy Verified 08/12/23 13:53 PFSH Acute PFSH: Medical History Hyperlipidemia Hypertension 1 ppd for 55 years Nicotine dependence CAD (coronary artery disease) Diabetes mellitus COPD (chronic obstructive pulmonary disease) Congestive heart failure Social History Smoking and tobacco/nicotine status: current every day tobacco/nicotine user Vitals/I&O/Wt Last Vital Signs Temp 98.0 F 08/15/23 11:20 Pulse 86 08/15/23 11:20 Resp 18 08/15/23 11:20 BP 128/77 08/15/23 11:20 Pulse Ox 93 08/15/23 11:20 O2 Del Method Room Air 08/15/23 11:20 Weight last 48 hrs Weight 217 lb Physical Exam Narrative: GENERAL: The patient is alert and oriented times three. Not in any acute distress. HEENT: No significant pallor, icterus or lymphadenopathy.Oral cavity: There are no mucous membrane lesions. NECK: Trachea appears to be central. No masses noted. No JVD or thyromegaly appreciated. RESPIRATORY: Chest is symmetrical. No intercostals muscle retraction or any accessory muscle activation. There is no chest wall tenderness. Breath sounds are heard bilaterally. No rales or rhonchi heard. No evidence of any consolidation. BREASTS: Deferred. HEART: The heart sounds are normal. No S3 or S4. No significant murmurs. No pericardial rub ABDOMEN: No vessel pulsations or distention. No tenderness. No organomegaly appreciated. Bowel sounds are normally heard. : Deferred. RECTAL: Deferred. LYMPHATIC: No lymphadenopathy noted in the neck. EXTREMITIES: No edema or cyanosis. No clubbing. MUSCULOSKELETAL: No acute joint deformities or swelling SKIN: There are no significant rashes or ecchymosis NEUROPSYCHIATRIC: The patient is alert and oriented x3. Appears to be in a good mood. No tremors or rigidity noted. Data 08/15/23 10:55 08/15/23 10:55 Other Labs: Laboratory Last Values WBC 8.63 10^3/uL (3.29-11.43) 08/15/23 10:55 RBC 5.49 10^6/uL (3.85-5.65) 08/15/23 10:55 Hgb 17.10 g/dL (11.27-16.99) H 08/15/23 10:55 Hct 52.1 % (37-53) 08/15/23 10:55 MCV 94.9 fl (82-101) 08/15/23 10:55 MCH 31.1 pg (27-33) 08/15/23 10:55 MCHC 32.8 g/dL (30-55) 08/15/23 10:55 RDW 13.5 % (12.1-15.1) 08/15/23 10:55 Plt Count 219 10^3/cmm (157-399) 08/15/23 10:55 MPV 9.5 fL (7.4-10.4) 08/15/23 10:55 Neut % (Auto) 57.8 % 08/15/23 10:55 Lymph % (Auto) 30.2 % 08/15/23 10:55 Rock % (Auto) 9.6 % 08/15/23 10:55 Eos % (Auto) 1.6 % 08/15/23 10:55 Baso % (Auto) 0.5 % 08/15/23 10:55 Neut # (Auto) 4.98 10^3/uL (1.8-7.7) 08/15/23 10:55 Lymph # (Auto) 2.6 10^3/uL (0.8-4.8) 08/15/23 10:55 Rock # (Auto) 0.8 10^3/uL (0.2-0.9) 08/15/23 10:55 Eos # (Auto) 0.1 10^3/uL (0.0-0.8) 08/15/23 10:55 Baso # (Auto) 0.0 10^3/uL (0.0-0.1) 08/15/23 10:55 Nucleated RBC % (auto) 0 % 08/15/23 10:55 Nucleated RBCs # 0.0 /100WBC 08/15/23 10:55 Sodium 139 mmol/L (136-145) 08/15/23 10:55 Potassium 4.2 mmol/L (3.5-5.1) 08/15/23 10:55 Chloride 101 mmol/L (98-107) 08/15/23 10:55 Carbon Dioxide 29 mmol/L (22-29) 08/15/23 10:55 Anion Gap 13.2 (5-19) 08/15/23 10:55 BUN 13 mg/dL (8-23) 08/15/23 10:55 Creatinine 0.8 mg/dL (0.7-1.2) 08/15/23 10:55 GFR Calculation 97.6 mL/min (90-130) 08/15/23 10:55 Glucose 136 mg/dL (65-115) H 08/15/23 10:55 Calculated Osmolality 290 mOsm/kg (285-295) 08/15/23 10:55 Calcium 9.6 mg/dL (8.5-10.5) 08/15/23 10:55 Other data: EKG on 01/06/2023 Normal sinus rhythm with some nonspecific ST changes in the inferior leads MPI done on 07/25/2023 Recommendation(s): Imaging done on 07/25/2023 IMPRESSIONS 1. Abnormal myocardial perfusion imaging with medium sized area of prior infarct with significant guerita-infarct ischemia in RCA territory. 2. LV systolic function is normal Echocardiogram done on 10/24/2021 1. This is a technically difficult study. Ultrasound enhancing agent Optison was used per protocol. 2. Normal left ventricular cavity size. Normal left ventricular systolic function. Left ventricular ejection fraction is estimated at 65 %. Normal diastolic function. 3. Normal right ventricular size and systolic function. 4. No prior similar studies to compare. A&P Assessment and plan (1) Abnormal cardiovascular stress test: In view of the patient's ongoing symptoms, previous history of coronary disease and PCI, in order to further evaluate the coronary status, a cardiac catheterization was recommended. The risk of bleeding, hematoma, vascular injury, myocardial infarction, myocardial perforation, malignant cardiac arrhythmias ,CVA, renal failure and other concomitant complications were explained in detail. Patient understood this well and consented to proceed. (2) Hypertension: Currently normotensive. May continue on the current medication. Qualifiers: Hypertension type: primary hypertension Qualified Code(s): I10 - Essential (primary) hypertension (3) Hyperlipidemia: Continue on the current medicines. Qualifiers: Hyperlipidemia type: mixed hyperlipidemia Qualified Code(s): E78.2 - Mixed hyperlipidemia (4) Atherosclerotic heart disease of [place] coronary artery with other forms of angina pectoris: Patient had a PCI approximately 15 years ago at the [facility]. Details are not available. (5) Diabetes mellitus: Will continue on the current management. Qualifiers: Diabetes mellitus complication status: without complication Diabetes mellitus fdc insulin use: without student affairs vice president use Diabetes mellitus type: type 2 Qualified Code(s): E11.9 - Type 2 diabetes mellitus without complications Plan Based on the results of the angiogram, further recommendations will be made. Attestations Medical Necessity Statement*: Patient may require overnight stay for further management of his condition Coding Level of Care Code 92173 Diagnoses Abnormal cardiovascular stress test R94.39 Primary hypertension I10 Hypertension type: primary hypertension Mixed hyperlipidemia E78.2 Hyperlipidemia type: mixed hyperlipidemia Atherosclerotic heart disease of [place] coronary artery with other forms of angina pectoris I25.118 Type 2 diabetes mellitus without complication, without long-term current use of insulin E11.9 Diabetes mellitus complication status: without complication Diabetes mellitus student affairs vice president insulin use: without student affairs vice president use Diabetes mellitus type: type 2
--- NOTE | 2023-08-15 13:00 | W.PM.OPSUD ---
Surgery/Procedure H&P Update DATE OF PROCEDURE: August 15, 2023 DATE H&P PERFORMED: 08/15/23 H&P UPDATE INFORMATION: I have reviewed H&P completed within last 30 days, I have examined patient prior to procedure and No changes to prior documentation PREOP DIAGNOSIS: Atherosclerotic heart disease PRIMARY INDICATION FOR PROCEDURE: Chest pain, abnormal Myocardial perfusion imaging, previous history of ASHD PLANNED PROCEDURE: Operation Date: 08/13/23 07:00 Proposed Procedures p [facility] [address] I50.32,I25.118, R94.39,(Left) - Yokasta Patterson MD Operation Date: 08/15/23 10:50 Proposed Procedures p Cardiac Catheterization(Not Applicable) - Yokasta Patterson MD PATIENT REASSESSED PRIOR TO SEDATION, WITH NO CHANGE NOTED: Yes PHYSICAL EXAM: alert, oriented x 3, clear to auscultation bilaterally, regular rate & rhythm and operative site marked AIRWAY EVAL/ANESTHESIA PLAN: normal airway, see other exam findings, ASA III, Monitored Anesthesia, Local Anesthesia, Risks, benefits & alternatives of sedation and/or procedure discussed and Patient agrees to continue as planned
[2023-08-15 14:26] VITALS: BP 134/83; PULSE 91; RESP 25; O2SAT 88
[2023-08-15 14:59] VITALS: PULSE 87; RESP 19
[2023-08-15 15:00] VITALS: PULSE 90; RESP 19
[2023-08-15] MEDS: metoprolol tartrate 50 mg Tablet PO (15:44)
[2023-08-15 16:02] VITALS: PULSE 86; RESP 16; O2SAT 86
[2023-08-15 16:33] VITALS: BP 149/94; PULSE 94; RESP 23; TEMP 36.7; O2SAT 92
--- NOTE | 2023-08-15 18:05 | PC.NURSE ---
Patient refused to wear telemetry approximately one hour before discharge.
== END 2023-08-15 18:04 | disposition home or self-care (01) ==
LOC: CCL 10:25 → CSU 14:57
PROVIDERS: PCP Nurse Practitioner Family; Visit Provider Internal Medicine Cardiovascular Disease
DX: I25.118 Atherosclerotic heart disease of native coronary artery with other forms of angina pectoris (principal); I25.82 Chronic total occlusion of coronary artery; E78.2 Mixed hyperlipidemia; E11.9 Type 2 diabetes mellitus without complications; I11.0 Hypertensive heart disease with heart failure; I50.32 Chronic diastolic (congestive) heart failure; J44.9 Chronic obstructive pulmonary disease, unspecified; M19.90 Unspecified osteoarthritis, unspecified site
CPT/HCPCS: 36415; 80048; 85025; 93458; 96361; 96365; 99152; 99153; C1769; C1887; C1894; J1644; J2250; J3010; J3490; J7030; Q0163; Q9967